=== PATIENT | female | born 1970 | race African-American/Black ===

== ENCOUNTER 2016-08-24 21:17 | Emergency (ER) | payer OTHER ==
[2016-08-24 21:30] VITALS: BP 118/73; PULSE 82; TEMP 98; BMI 26.4
--- NOTE | 2016-08-24 23:17 | PDOC ---
History of Present Illness - General History Source: Patient Exam Limitations: No Limitations - History of Present Illness Initial Comments: 08/24/16 23:30 The patient is a 46 year old female, with a significant past medical history of Narcotics abuse with multiple rehab admissions, anxiety and depression, who presents to the emergency department with right ankle pain. She reports that she took her sneakers off and thats when she began to have the pain. She states that she has some numbness in the area. She notes that she was able to walk to a taxi come to the ED. She reports that she recently smoked PCP prior to presenting to the ED. The patient denies chest pain, shortness of breath, headache and dizziness. Denies fever, chills, nausea, vomit, diarrhea and constipation. Denies dysuria, frequency, urgency and hematuria. Allergies: None Past surgical history: Scoliosis surgery, splenectomy Social history: Narcotic use (PCP). <Gerry Ramey - Last Filed: 08/24/16 23:30> <Everton Ashley - Last Filed: 08/25/16 01:41> - General Chief Complaint: Bone Injury Stated Complaint: R ANKLE INJURY Time Seen by Provider: 08/24/16 23:10 Past History <Gerry Ramey - Last Filed: 08/24/16 23:30> - Past Medical History Anemia: No Asthma: No Cancer: No Cardiac Disorders: No CVA: No COPD: No CHF: No Dementia: No Diabetes: No GI Disorders: No Disorders: No HTN: No Hypercholesterolemia: No Kidney Stones: No Liver Disease: No Psychiatric Problems: Yes (ANXIETY/DEPRESSION) Suicide Attempt (Hx): No Seizures: No Thyroid Disease: No Other medical history: scoliosis - Surgical History Abdominal Surgery: Yes (SPLEENECTOMY FOR THROMBOCYTOPENIA WHEN SHE WAS 3 YRS. OLD) Orthopedic Surgery: Yes (FOR SCOLIOSIS WHEN SHE WAS 18 YRS. OLD) - Reproductive History PID: No - Psycho/Social/Smoking Cessation Hx Anxiety: No Suicidal Ideation: No Smoking History: Never smoked Have you smoked in the past 12 months: No Number of Cigarettes Smoked Daily: 0 If you are a former smoker, when did you quit?: 20 YRS. AGO Information on smoking cessation initiated: Yes 'Breaking Loose' booklet given: 08/24/16 Hx Alcohol Use: No Drug/Substance Use Hx: Yes (PCP) Substance Use Type: Tranquilizers Hx Substance Use Treatment: Yes (One previous rehab admision at [facility] ) <Everton Ashley - Last Filed: 08/25/16 01:41> - Past Medical History Allergies/Adverse Reactions: Allergies Allergy/AdvReac Type Severity Reaction Status Date / Time No Known Allergies Allergy Verified 08/24/16 23:46 Home Medications: Ambulatory Orders NK [No Known Home Medication] 08/24/16 Review of Systems - Review of Systems Able to Perform ROS?: Yes Comments:: 08/24/16 23:30 GENERAL/CONSTITUTIONAL: No fever or chills. No weakness. HEAD, EYES, EARS, NOSE AND THROAT: No change in vision. No ear pain or discharge. No sore throat. CARDIOVASCULAR: No chest pain or shortness of breath RESPIRATORY: No cough, wheezing, or hemoptysis. GASTROINTESTINAL: No nausea, vomiting, diarrhea or constipation. GENITOURINARY: No dysuria, frequency, or change in urination. MUSCULOSKELETAL: No joint or muscle swelling or pain. No neck or back pain. EXTREMITIES: +Right ankle pain. SKIN: No rash NEUROLOGIC: No headache, vertigo, loss of consciousness, or change in strength/ sensation. ENDOCRINE: No increased thirst. No abnormal weight change HEMATOLOGIC/LYMPHATIC: No anemia, easy bleeding, or history of blood clots. ALLERGIC/IMMUNOLOGIC: No hives or skin allergy. <Gerry Ramey - Last Filed: 08/24/16 23:30> *Physical Exam - Vital Signs Last Vital Signs Temp Pulse Resp BP Pulse Ox 98 F 82 18 118/73 100 08/24/16 21:21 08/24/16 21:21 08/24/16 21:21 08/24/16 21:21 08/24/16 21:21 - Physical Exam Comments: 08/24/16 23:31 GENERAL: Awake, alert, and fully oriented, in no acute distress HEAD: No signs of trauma, normocephalic, atraumatic EXTREMITIES: +Right achilles is intact. No redness, swelling or warmth. Normal inspection, Normal range of motion, no edema. No clubbing or cyanosis. NEUROLOGICAL: Cranial nerves II through XII grossly intact. Normal speech, normal gait, no focal sensorimotor deficits SKIN: Warm, Dry, normal turgor, no rashes or lesions noted. <Gerry Ramey - Last Filed: 08/24/16 23:30> - Vital Signs Last Vital Signs Temp Pulse Resp BP Pulse Ox 98 F 82 18 118/73 100 08/24/16 21:21 08/24/16 21:21 08/24/16 21:21 08/24/16 21:21 08/24/16 21:21 <Everton Ashley - Last Filed: 08/25/16 01:41> *DC/Admit/Observation/Transfer - Attestations Scribe Attestion: 08/24/16 23:31 Documentation prepared by Gerry Ramey, acting as medical affairs specialist for Everton Ashley MD. <Gerry Ramey - Last Filed: 08/24/16 23:30> - Discharge Dispostion Admit: No <Everton Ashley - Last Filed: 08/25/16 01:41> Diagnosis at time of Disposition: Sprain of right ankle - Discharge Dispostion Disposition: HOME Condition at time of disposition: Stable - Referrals Referrals: STAFF,NOT ON [Primary Care Provider] -
[2016-08-25 00:06] LABS: URINE APPEARANCE SLCLOUDY; URINE BILIRUBIN NEGATIVE (NEGATIVE); URINE COLOR LTYELLOW; URINE GLUCOSE (UA) NEGATIVE (NEGATIVE); URINE KETONE NEGATIVE (NEGATIVE); URINE LEUK ESTERASE NEGATIVE (NEGATIVE); URINE NITRITE NEGATIVE (NEGATIVE); URINE PROTEIN NEGATIVE (NEGATIVE); URINE UROBILINOGEN NEGATIVE E.U./dl (0.2-1.0)
[2016-08-25 00:24] LABS: URINE BLOOD 1+ (NEGATIVE)
== END 2016-08-25 01:47 | disposition home or self-care (01) ==
LOC: JER 21:17
DX: S93.401A Sprain of unspecified ligament of right ankle, initial encounter (principal); X58.XXXA Exposure to other specified factors, initial encounter; Y93.89 Activity, other specified; Y92.89 Other specified places as the place of occurrence of the external cause; F19.10 Other psychoactive substance abuse, uncomplicated; F41.8 Other specified anxiety disorders; Z87.891 Personal history of nicotine dependence
CPT/HCPCS: 73610-TC-RT; 73630-TC-RT; 81003; 81015; 84703; 99283-25

== ENCOUNTER 2017-09-28 14:05 | Inpatient (IN) | payer OTHER ==
[2017-09-28 16:35] VITALS: BMI 25.7
--- NOTE | 2017-09-28 18:25 | HP ---
Admission ROS [facility] Chief Complaint: requesting inpatient rehab for pcp use Allergies/Adverse Reactions: Allergies Allergy/AdvReac Type Severity Reaction Status Date / Time No Known Allergies Allergy Verified 08/24/16 23:46 History of Present Illness: 47 yo f w h/o [facility], no other subustnae use reported, no seiuzres, DTs or SI. released by [facility], drug court mandated [place] to [facility] Exam Limitations: No Limitations - Ebola screening Have you traveled outside of the country in the last 21 days: No Have you had contact with anyone from an Ebola affected area: No Have you been sick,other than usual withdrawal symptoms: No Do you have a fever: No - Review of Systems Constitutional: No Symptoms Reported EENT: reports: No Symptoms Reported Respiratory: reports: No Symptoms reported Cardiac: reports: No Symptoms Reported GI: reports: No Symptoms Reported : reports: No Symptoms Reported Musculoskeletal: reports: No Symptoms Reported Integumentary: reports: No Symptoms Reported Neuro: reports: No Symptoms reported Endocrine: reports: No Symptoms Reported Hematology: reports: No Symptoms Reported Psychiatric: reports: Judgement Intact, Mood/Affect Appropiate, Orientated x3, Anxious, Depressed Other Systems: Reviewed and Negative Patient History - Patient Medical History Hx Anemia: No Hx Asthma: No Hx Chronic Obstructive Pulmonary Disease (COPD): No Hx Cancer: No Hx Cardiac Disorders: No Hx Congestive Heart Failure: No Hx Hypertension: No Hx Hypercholesterolemia: No Hx Pacemaker: No HX Cerebrovascular Accident: No Hx Seizures: No Hx Dementia: No Hx Diabetes: No Hx Gastrointestinal Disorders: No Hx Liver Disease: No Hx Genitourinary Disorders: No Hx Sexually Transmitted Disorders: No Hx Renal Disease (ESRD): No Hx Thyroid Disease: No Hx Human Immunodeficiency Virus (HIV): No Hx Hepatitis C: No Hx Depression: No Hx Suicide Attempt: No Hx Bipolar Disorder: No Hx Schizophrenia: No - Patient Surgical History Past Surgical History: Yes Hx Abdominal Surgery: Yes (SPLEENECTOMY FOR THROMBOCYTOPENIA WHEN SHE WAS 3 YRS. OLD) Hx Orthopedic Surgery: Yes (FOR SCOLIOSIS WHEN SHE WAS 18 YRS. OLD) Other Surgical History: umbilical hernia - PPD History Previous Implant?: Yes Date: 09/07/14 PPD to be Administered?: Yes - Reproductive History Patient is a Female of Child Bearing Age (11 -55 yrs old): No Last Menstrual Period: 09/02/14 Patient : No - Smoking Cessation Smoking history: Never smoked Have you smoked in the past 12 months: No Aproximately how many cigarettes per day: 0 If you are a former smoker, when did you quit?: 20 YRS. AGO Hx Chewing Tobacco Use: No Initiated information on smoking cessation: No 'Breaking Loose' booklet given: 09/28/17 - Substance & Tx. History Hx Alcohol Use: No Hx Substance Use: Yes (pcp) Hx Substance Use Treatment: Yes - Substances Abused PCP Route: Smoking Frequency: Daily Amount used: 1 blunt daily Age of first use: 33 Date of Last Use: 09/13/17 Family Disease History - Family Disease History Family Disease History: CA: Grandparent (breast cancer) Other Family History: uncle and aunt alcoholism Admission Physical Exam [facility] - Vital Signs Vital Signs: Vital Signs - 24 hr 09/28/17 16:30 Temperature 97.7 F Pulse Rate 94 H Respiratory 18 Rate Blood Pressure 119/68 - Physical General Appearance: Yes: Within Normal Limits, No Apparent Distress, Nourished, Appropriately Dressed, Anxious HEENTM: Yes: Within Normal Limits, EOMI, Hearing grossly Normal, Normal ENT Inspection, Normocephalic, Normal Voice, KISHA, Pharynx Normal, Tm's normal Respiratory: Yes: Within Normal Limits, Chest Non-Tender, Lungs Clear, Normal Breath Sounds, No Respiratory Distress, No Accessory Muscle Use Neck: Yes: Within Normal Limits, No masses,lesions,Nodules, Supple, Trachea in good position Breast: Yes: Breast Exam Deferred Cardiology: Yes: Within Normal Limits, Regular Rhythm, Regular Rate, S1, S2 Abdominal: Yes: Within Normal Limits, Normal Bowel Sounds, Non Tender, Flat, Soft Genitourinary: Yes: Within Normal Limits Back: Yes: Within Normal Limits, Normal Inspection Musculoskeletal: Yes: Within Normal Limits, full range of Motion, Gait Steady, Pelvis Stable Extremities: Yes: Within Normal Limits, Normal Capillary Refill, Normal Inspection, Normal Range of Motion, Non-Tender Neurological: Yes: yam curer II-XII NML intact, Fully Oriented, Alert, Motor Strength 5/5, Normal Response, Depressed Affect Integumentary: Yes: Within Normal Limits, Normal Color, Dry, Warm Lymphatic: Yes: Within Normal Limits - Diagnostic (1) PCP DEPENDENCE Current Visit: No Status: Chronic [facility] Breath Alcohol Content Breath Alcohol Content: 0 Urine Pregancy Test - Result Urine Test Results: Negative- NO Line Present Urine Drug Screen - Results Drug Screen Negative: No Urine Drug Screen Results: PCP-Phencyclidine
[2017-09-28] MEDS ORDERED: MAG HYDROX/AL HYDROX/SIMETH 30 ML UNIT-DOSE CUP PO PRN (18:26)
[2017-09-28] MEDS ORDERED: MENTHOL/PHENOL 1 EACH UD MM PRN (18:26)
[2017-09-28] MEDS ORDERED: P-EPHED 60MG/TRIPROLIDI 2.5MG TABLET PO PRN (18:26)
[2017-09-28] MEDS ORDERED: hydrOXYzine PAMOATE 50 MG CAPSULE (FP) PO PRN (18:26)
[2017-09-28] MEDS ORDERED: LOPERAMIDE HCL 2 MG CAPSULE PO PRN (18:26)
[2017-09-28] MEDS ORDERED: MAGNESIUM HYDROX 2400MG/30ML ORAL SUSPENSION 30 ML CUP PO PRN (18:26)
[2017-09-28] MEDS ORDERED: MAGNESIUM CITRATE 300 ML BOTTLE PO PRN (18:26)
[2017-09-28] MEDS ORDERED: guaiFENesin/D-METHORPHAN HB 10 ML UNIT-DOSE CUPS PO PRN (18:26)
[2017-09-28] MEDS ORDERED: TUBERCULIN PPD 5 TU/0.1ML VIAL ID ONE (21:14)
[2017-09-28] MEDS: THIAMINE HCL 100 MG TABLET (FP) PO SCH (21:19)
[2017-09-29 00:34] LABS: URINE APPEARANCE SLCLOUDY; URINE BILIRUBIN NEGATIVE (NEGATIVE); URINE BLOOD NEGATIVE (NEGATIVE); URINE COLOR YELLOW; URINE GLUCOSE (UA) NEGATIVE (NEGATIVE); URINE KETONE NEGATIVE (NEGATIVE); URINE LEUK ESTERASE NEGATIVE (NEGATIVE); URINE NITRITE NEGATIVE (NEGATIVE); URINE PROTEIN NEGATIVE (NEGATIVE); URINE UROBILINOGEN NEGATIVE mg/dL (0.2-1.0)
[2017-09-29] MEDS: PRENATAL VITAMINS W/ FOLIC ACID TABLET (FP) PO SCH (09:41)
[2017-09-29 10:10] LABS: HEMATOCRIT 37.5 % (32.4-45.2); HEMOGLOBIN 12.7 GM/dL (10.7-15.3); MCH 32.3 pg (25.7-33.7); MCHC 33.8 g/dl (32.0-36.0); MEAN CELL VOLUME 95.6 fl (80-96); MEAN PLT VOLUME 8.3 fl (7.5-11.1); PLATELET COUNT 295 K/MM3 (134-434); RBC 3.92 M/mm3 (3.60-5.2); RDW 13.2 % (11.6-15.6); WHITE BLOOD COUNT 5.9 K/mm3 (4.0-10.0)
[2017-09-29 10:22] LABS: ALBUMIN 3.6 g/dl (3.4-5.0); ALK PHOS 70 U/L (45-117); ANION GAP 5 (8-16); BILIRUBIN,TOTAL 0.2 mg/dL (0.2-1.0); BLOOD UREA NITROGEN 10 mg/dL (7-18); CALCIUM 8.5 mg/dL (8.5-10.1); CHLORIDE 105 mmol/L (98-107); CO2 30 mmol/L (21-32); CREATININE 0.5 mg/dL (0.55-1.02); GLUCOSE,RANDOM 81 mg/dL (74-106); POTASSIUM 3.9 mmol/L (3.5-5.1); SGOT/AST 12 U/L (15-37); SGPT/ALT 18 U/L (12-78); SODIUM 140 mmol/L (136-145); TOT PROT 6.8 g/dl (6.4-8.2)
[2017-09-29 11:47] LABS: SICKLE CELL SCREEN NEGATIVE (NEGATIVE)
--- NOTE | 2017-09-29 13:31 | HP ---
Psychiatrist Admission - Data Date of interview: 09/29/17 Admission source: Dario barahona Identifying data: This is the second admission to [address] [place] [address] for this 47 years single female mother of 15 yo boy(child resides with the patient's sister),patient resides ewith her mother,empolyed in [employer]. Medical History: H/O Tinea cruris,H/O vaginosis,H/O R ankle sprain. Psychiatric History: denies Physical/Sexual Abuse/Trauma History: denies Vital Signs: Vital Signs - 24 hr 09/28/17 09/29/17 09/29/17 16:30 03:30 06:57 Temperature 97.7 F 98.1 F Pulse Rate 94 H 73 Respiratory 18 16 18 Rate Blood Pressure 119/68 95/60 Allergies/Adverse Reactions: Allergies Allergy/AdvReac Type Severity Reaction Status Date / Time No Known Allergies Allergy Verified 09/28/17 18:46 Date of last physical exam: 09/28/17 Concur with the findings of this exam: Yes - Substance Abuse/Tx History Hx Alcohol Use: No Hx Substance Use: Yes (PCP since 33 years old ,4 bags daily) Hx Substance Use Treatment: Yes (completed this program in September 2014,relapsed in a few months after d/c) Mental Status Exam - Mental Status Exam Alert and Oriented to: Time, Place, Person Cognitive Function: Grossly Intact Patient Appearance: Unkempt Mood: Euthymic Affect: Mood Congruent Patient Behavior: Cooperative Speech Pattern: Clear Voice Loudness: Normal Thought Process: Goal Oriented Thought Disorder: Not Present Hallucinations: Denies Suicidal Ideation: Denies Homicidal Ideation: Denies Insight/Judgement: Fair Sleep: Fair Appetite: Good Muscle strength/Tone: Normal Gait/Station: Normal Psychiatric Findings - Problem List ([place] 1, 2,3) (1) Right ankle sprain Current Visit: Yes Status: Resolved (2) Tinea cruris Current Visit: Yes Status: Inactive (3) Vaginitis Current Visit: Yes Status: Inactive Qualifiers: Chronicity: acute Qualified Code(s): N76.0 - Acute vaginitis (4) PCP DEPENDENCE Current Visit: Yes Status: Chronic - Initial Treatment Plan Initial Treatment Plan: Will monitor progress.
--- NOTE | 2017-09-29 15:10 | EKG ---
Test Reason : Blood Pressure : / mmHG Vent. Rate : 073 BPM Atrial Rate : 073 BPM P-R Int : 156 ms QRS Dur : 074 ms QT Int : 396 ms P-R-T Axes : 017 062 042 degrees QTc Int : 436 ms NORMAL SINUS RHYTHM NORMAL ECG NO PREVIOUS ECGS AVAILABLE Confirmed by RACHAEL FRANZ MD ([id number]) on 09/29/2017 3:09:51 PM Referred By: Confirmed By:RACHAEL FRANZ MD
[2017-09-29] MEDS: THIAMINE HCL 100 MG TABLET (FP) PO SCH (21:46)
[2017-09-30] MEDS: PRENATAL VITAMINS W/ FOLIC ACID TABLET (FP) PO SCH (10:05)
[2017-09-30] MEDS: ACETAMINOPHEN 325 MG TABLET (FP) PO PRN (18:44)
[2017-09-30] MEDS ORDERED: PT OWN MED DRAWER 7, Y5N ONE ×2 (21:12→23:20)
[2017-09-30] MEDS: THIAMINE HCL 100 MG TABLET (FP) PO SCH (21:15)
[2017-10-01] MEDS: PRENATAL VITAMINS W/ FOLIC ACID TABLET (FP) PO SCH (09:43)
[2017-10-01] MEDS ORDERED: PT OWN MED DRAWER 7, Y5N ONE ×2 (21:20→23:22)
[2017-10-01] MEDS: THIAMINE HCL 100 MG TABLET (FP) PO SCH (21:26)
[2017-10-02] MEDS: PRENATAL VITAMINS W/ FOLIC ACID TABLET (FP) PO SCH (10:00)
[2017-10-02] MEDS ORDERED: PT OWN MED DRAWER 7, Y5N ONE ×2 (21:10→23:12)
[2017-10-02] MEDS: THIAMINE HCL 100 MG TABLET (FP) PO SCH (21:14)
[2017-10-03] MEDS: PRENATAL VITAMINS W/ FOLIC ACID TABLET (FP) PO SCH (09:55)
[2017-10-03] MEDS: THIAMINE HCL 100 MG TABLET (FP) PO SCH (21:06)
[2017-10-04] MEDS: PRENATAL VITAMINS W/ FOLIC ACID TABLET (FP) PO SCH (09:43)
[2017-10-04] MEDS: THIAMINE HCL 100 MG TABLET (FP) PO SCH (21:00)
[2017-10-05] MEDS: PRENATAL VITAMINS W/ FOLIC ACID TABLET (FP) PO SCH (09:39)
[2017-10-05] MEDS: THIAMINE HCL 100 MG TABLET (FP) PO SCH (21:08)
[2017-10-06] MEDS: PRENATAL VITAMINS W/ FOLIC ACID TABLET (FP) PO SCH (09:55)
[2017-10-06] MEDS ORDERED: PT OWN MED DRAWER 7, Y5N ONE (21:05)
[2017-10-06] MEDS: THIAMINE HCL 100 MG TABLET (FP) PO SCH (21:14)
[2017-10-07] MEDS ORDERED: PT OWN MED DRAWER 7, Y5N ONE (00:21)
[2017-10-07] MEDS: PRENATAL VITAMINS W/ FOLIC ACID TABLET (FP) PO SCH (09:42)
[2017-10-07] MEDS: THIAMINE HCL 100 MG TABLET (FP) PO SCH (21:05)
[2017-10-08] MEDS: PRENATAL VITAMINS W/ FOLIC ACID TABLET (FP) PO SCH (10:16)
[2017-10-08] MEDS: THIAMINE HCL 100 MG TABLET (FP) PO SCH (21:08)
[2017-10-09] MEDS: PRENATAL VITAMINS W/ FOLIC ACID TABLET (FP) PO SCH (09:51)
[2017-10-09] MEDS ORDERED: PT OWN MED DRAWER 7, Y5N ONE (21:07)
[2017-10-09] MEDS: THIAMINE HCL 100 MG TABLET (FP) PO SCH (21:12)
[2017-10-09] MEDS: IBUPROFEN 400 MG TABLET (FP) PO PRN (23:14)
[2017-10-10] MEDS: PRENATAL VITAMINS W/ FOLIC ACID TABLET (FP) PO SCH (09:58)
[2017-10-10] MEDS: IBUPROFEN 400 MG TABLET (FP) PO PRN (09:58)
[2017-10-10] MEDS ORDERED: COLLOIDAL OATMEAL 1 BAR EACH TP PRN (17:08)
--- NOTE | 2017-10-10 17:10 | PN ---
[facility] Progress Note Note: Patient c/o of itch and dryness over body after using current soap Vital Signs Temperature 97.8 F 10/10/17 07:00 Pulse Rate 68 10/10/17 07:00 Respiratory Rate 18 10/10/17 07:00 Blood Pressure 100/64 10/10/17 07:00 O2 Sat by Pulse Oximetry (%) Laboratory Last Values WBC 5.9 K/mm3 (4.0-10.0) 09/29/17 08:00 RBC 3.92 M/mm3 (3.60-5.2) 09/29/17 08:00 Hgb 12.7 GM/dL (10.7-15.3) 09/29/17 08:00 Hct 37.5 % (32.4-45.2) 09/29/17 08:00 MCV 95.6 fl (80-96) 09/29/17 08:00 MCH 32.3 pg (25.7-33.7) 09/29/17 08:00 MCHC 33.8 g/dl (32.0-36.0) 09/29/17 08:00 RDW 13.2 % (11.6-15.6) 09/29/17 08:00 Plt Count 295 K/MM3 (134-434) 09/29/17 08:00 MPV 8.3 fl (7.5-11.1) 09/29/17 08:00 Sickle Cell Screen Negative (NEGATIVE) 09/29/17 08:00 Sodium 140 mmol/L (136-145) 09/29/17 08:00 Potassium 3.9 mmol/L (3.5-5.1) 09/29/17 08:00 Chloride 105 mmol/L (98-107) 09/29/17 08:00 Carbon Dioxide 30 mmol/L (21-32) 09/29/17 08:00 Anion Gap 5 (8-16) L 09/29/17 08:00 BUN 10 mg/dL (7-18) 09/29/17 08:00 Creatinine 0.5 mg/dL (0.55-1.02) L 09/29/17 08:00 Creat Clearance w eGFR > 60 (>60) 09/29/17 08:00 Random Glucose 81 mg/dL (74-106) 09/29/17 08:00 Calcium 8.5 mg/dL (8.5-10.1) 09/29/17 08:00 Total Bilirubin 0.2 mg/dL (0.2-1.0) 09/29/17 08:00 AST 12 U/L (15-37) L 09/29/17 08:00 ALT 18 U/L (12-78) 09/29/17 08:00 Alkaline Phosphatase 70 U/L (45-117) 09/29/17 08:00 Total Protein 6.8 g/dl (6.4-8.2) 09/29/17 08:00 Albumin 3.6 g/dl (3.4-5.0) 09/29/17 08:00 Urine Color Yellow 09/29/17 00:05 Urine Appearance Slcloudy 09/29/17 00:05 Urine pH 6.0 (5.0-8.0) 09/29/17 00:05 Ur Specific [place] 1.019 (1.001-1.035) 09/29/17 00:05 Urine Protein Negative (NEGATIVE) 09/29/17 00:05 Urine Glucose (UA) Negative (NEGATIVE) 09/29/17 00:05 Urine Ketones Negative (NEGATIVE) 09/29/17 00:05 Urine Blood Negative (NEGATIVE) 09/29/17 00:05 Urine Nitrite Negative (NEGATIVE) 09/29/17 00:05 Urine Bilirubin Negative (NEGATIVE) 09/29/17 00:05 Urine Urobilinogen Negative mg/dL (0.2-1.0) 09/29/17 00:05 Ur Leukocyte Esterase Negative (NEGATIVE) 09/29/17 00:05 RPR Titer Nonreactive (NONREACTIVE) 09/29/17 08:00 Labs noted Patient AOX 3, in no apparent distress ambulating in the unit No skin break down, mild irritatin present dermatitis: aveno soap , increase fluids, continue to monitor
[2017-10-10] MEDS: THIAMINE HCL 100 MG TABLET (FP) PO SCH (21:04)
[2017-10-11] MEDS: PRENATAL VITAMINS W/ FOLIC ACID TABLET (FP) PO SCH (10:06)
[2017-10-11] MEDS: IBUPROFEN 400 MG TABLET (FP) PO PRN (15:02)
[2017-10-11] MEDS ORDERED: COLLOIDAL OATMEAL 1 BAR EACH TP PRN (15:53)
[2017-10-11] MEDS: THIAMINE HCL 100 MG TABLET (FP) PO SCH (21:06)
[2017-10-11] MEDS ORDERED: PT OWN MED DRAWER 7, Y5N ONE ×2 (23:37→23:42)
[2017-10-12] MEDS: PRENATAL VITAMINS W/ FOLIC ACID TABLET (FP) PO SCH (09:34)
[2017-10-12] MEDS: THIAMINE HCL 100 MG TABLET (FP) PO SCH (21:06)
[2017-10-13] MEDS: PRENATAL VITAMINS W/ FOLIC ACID TABLET (FP) PO SCH (10:15)
[2017-10-13] MEDS: THIAMINE HCL 100 MG TABLET (FP) PO SCH (21:04)
[2017-10-14] MEDS: PRENATAL VITAMINS W/ FOLIC ACID TABLET (FP) PO SCH (09:59)
[2017-10-14] MEDS: IBUPROFEN 400 MG TABLET (FP) PO PRN (20:06)
[2017-10-14] MEDS: THIAMINE HCL 100 MG TABLET (FP) PO SCH (21:18)
[2017-10-14] MEDS ORDERED: PT OWN MED DRAWER 7, Y5N ONE (23:26)
[2017-10-15] MEDS: PRENATAL VITAMINS W/ FOLIC ACID TABLET (FP) PO SCH (09:45)
[2017-10-15] MEDS ORDERED: PT OWN MED DRAWER 7, Y5N ONE ×2 (21:11→21:36)
[2017-10-15] MEDS: THIAMINE HCL 100 MG TABLET (FP) PO SCH (21:14)
[2017-10-16] MEDS: PRENATAL VITAMINS W/ FOLIC ACID TABLET (FP) PO SCH (09:49)
[2017-10-16] MEDS: THIAMINE HCL 100 MG TABLET (FP) PO SCH (21:07)
[2017-10-16] MEDS: IBUPROFEN 400 MG TABLET (FP) PO PRN (21:09)
[2017-10-16] MEDS ORDERED: PT OWN MED DRAWER 7, Y5N ONE (22:55)
[2017-10-17] MEDS: PRENATAL VITAMINS W/ FOLIC ACID TABLET (FP) PO SCH (10:10)
[2017-10-17] MEDS: THIAMINE HCL 100 MG TABLET (FP) PO SCH (21:04)
[2017-10-18] MEDS: PRENATAL VITAMINS W/ FOLIC ACID TABLET (FP) PO SCH (09:56)
--- NOTE | 2017-10-18 14:44 | PN ---
[facility] Progress Note Note: Notified by nurse pt has rash to right shoulder. Vital Signs Temperature 98.0 F 10/18/17 07:06 Pulse Rate 62 10/18/17 07:06 Respiratory Rate 18 10/18/17 07:06 Blood Pressure 101/65 10/18/17 07:06 O2 Sat by Pulse Oximetry (%) Subj: +itching to right shoulder. Denies any allergies to soap products and food. Obj: Skin: macular-red pin point rash to right shoulder. No ulcerations or lesions. A/P: Contact dermatitis Will order hydrocortisone ointment to site BID and continue to monitor clinically.
[2017-10-18] MEDS: THIAMINE HCL 100 MG TABLET (FP) PO SCH (21:10)
[2017-10-18] MEDS: HYDROCORTISONE 0.5% TOPICAL OINTMENT TUBE TP PRN (21:11)
[2017-10-19] MEDS: PRENATAL VITAMINS W/ FOLIC ACID TABLET (FP) PO SCH (09:45)
[2017-10-19] MEDS: THIAMINE HCL 100 MG TABLET (FP) PO SCH (21:05)
[2017-10-20] MEDS: HYDROCORTISONE 0.5% TOPICAL OINTMENT TUBE TP PRN (09:36)
[2017-10-20] MEDS: PRENATAL VITAMINS W/ FOLIC ACID TABLET (FP) PO SCH (09:36)
[2017-10-20] MEDS: THIAMINE HCL 100 MG TABLET (FP) PO SCH (21:12)
[2017-10-20] MEDS ORDERED: PT OWN MED DRAWER 7, Y5N ONE (23:14)
[2017-10-21] MEDS: PRENATAL VITAMINS W/ FOLIC ACID TABLET (FP) PO SCH (09:26)
[2017-10-21] MEDS: THIAMINE HCL 100 MG TABLET (FP) PO SCH (21:08)
[2017-10-22] MEDS: PRENATAL VITAMINS W/ FOLIC ACID TABLET (FP) PO SCH (09:24)
[2017-10-22] MEDS: ACETAMINOPHEN 325 MG TABLET (FP) PO PRN (10:08)
[2017-10-22] MEDS ORDERED: PT OWN MED DRAWER 7, Y5N ONE (10:12)
[2017-10-22] MEDS: THIAMINE HCL 100 MG TABLET (FP) PO SCH (21:08)
[2017-10-23] MEDS: PRENATAL VITAMINS W/ FOLIC ACID TABLET (FP) PO SCH (09:51)
[2017-10-23] MEDS: ACETAMINOPHEN 325 MG TABLET (FP) PO PRN (09:52)
[2017-10-23] MEDS: THIAMINE HCL 100 MG TABLET (FP) PO SCH (21:00)
[2017-10-24] MEDS: PRENATAL VITAMINS W/ FOLIC ACID TABLET (FP) PO SCH (09:54)
[2017-10-24] MEDS: THIAMINE HCL 100 MG TABLET (FP) PO SCH (21:12)
[2017-10-24] MEDS ORDERED: PT OWN MED DRAWER 7, Y5N ONE (22:58)
[2017-10-25 07:00] VITALS: BP 102/68; PULSE 78; TEMP 98.1
--- NOTE | 2017-10-25 08:39 | PN ---
Psychiatric Progress Note Vital Signs: Vital Signs Period Temp Pulse Resp BP Sys/Agustin Pulse Ox Last 24 Hr 98.1 F 78 16-18 102/68 Date of Session: 10/25/17 Chief Complaint:: Discharge HPI: Pt. admitted to for PCP dependence. ROS: Unremarkable Current Medications: Active Medications Generic Name Dose Route Start Last Admin Trade Name Freq PRN Reason Stop Dose Admin Acetaminophen 650 mg 09/28/17 18:26 10/23/17 09:52 Tylenol - PO 650 mg Q4H PRN Administration FEVER Al Hydroxide/Mg Hydroxide 30 ml 09/28/17 18:26 Mylanta Oral Suspension - PO Q6H PRN DYSPEPSIA Colloidal Oatmeal 1 applic 10/11/17 15:53 10/18/17 09:56 Aveeno Soap - TP 1 bar DAILY PRN Administration HYGEINE Eucalyptus/Menthol/Phenol/Sorbitol 1 each 09/28/17 18:26 Cepastat Lozenge - MM Q4H PRN SORE THROAT Guaifenesin 10 ml 09/28/17 18:26 Robitussin Dm - PO Q6H PRN COUGH Hydrocortisone 1 applic 10/18/17 14:41 10/20/17 09:36 Hytone 0.5% Ointment - TP 1 applic BID PRN Administration rash Hydroxyzine Pamoate 50 mg 09/28/17 18:26 Vistaril - PO Q4H PRN AGITATION Ibuprofen 400 mg 09/28/17 18:26 10/16/17 21:09 Motrin - PO 400 mg Q6H PRN Administration Pain level 4-6 Loperamide HCl 4 mg 09/28/17 18:26 Imodium - PO Q6H PRN DIARRHEA Magnesium Citrate 300 ml 09/28/17 18:26 Citroma - PO Q48H PRN CONSTIPATION Magnesium Hydroxide 30 ml 09/28/17 18:26 Milk Of Magnesia - PO DAILY PRN CONSTIPATION Multivit/Folic Acid/Iron 1 tab 09/29/17 10:00 10/24/17 09:54 Vitamins (Sjr) - PO 1 tab DAILY ELSI Administration Pseudoephedrine/Triprolidine 1 combo 09/28/17 18:26 Actifed - PO TID PRN NASAL CONGESTION Thiamine HCl 100 mg 09/28/17 22:00 10/24/17 21:12 Vitamin B1 - PO 100 mg HS ELSI Administration Medication(s) Change(s): No. Current Side Effect: No Lab tests ordered: No Lab tests reviewed: Yes Provider note:: Patient has completed the rehabilition program on 10/25/17. She has met the treatment goals and will continue to addresss her issues in outpatient at [facility]. She focues on insights gained in treatment including importance of changing attitude and ways she plans to utilize support to maintain recovery. Pt. is stable for discharge today. Total face to face time:: 35 Mental Status Exam - Mental Status Exam Alert and Oriented to: Time, Place, Person Cognitive Function: Good Patient Appearance: Well Groomed Mood: Hopeful, Happy Affect: Appropriate Patient Behavior: Appropriate, Cooperative Speech Pattern: Clear, Appropriate Voice Loudness: Normal Thought Process: Goal Oriented Thought Disorder: Not Present Hallucinations: Denies Suicidal Ideation: Denies Homicidal Ideation: Denies Insight/Judgement: Good Sleep: Well Appetite: Good Muscle strength/Tone: Normal Gait/Station: Normal Psychiatric Treatment Plan - Problem List (1) Acute dermatitis Current Visit: Yes (2) PCP DEPENDENCE Current Visit: Yes (3) Right ankle sprain Current Visit: Yes
[2017-10-25] MEDS: PRENATAL VITAMINS W/ FOLIC ACID TABLET (FP) PO SCH (10:00)
[2017-10-25] MEDS: HYDROCORTISONE 0.5% TOPICAL OINTMENT TUBE TP PRN (10:01)
== END 2017-10-25 10:55 | disposition home or self-care (01) | DRG 772 ==
LOC: YASAS 14:05 → Y3E 17:40
PROVIDERS: ADMIT Psychiatry & Neurology Psychiatry; ATTEND Psychiatry & Neurology Psychiatry
PROC: HZ42ZZZ Group Counseling for Substance Abuse Treatment, Cognitive-Behavioral (ICD-10-PCS; principal; 2017-09-28)
PROC: HZ42ZZZ Group Counseling for Substance Abuse Treatment, Cognitive-Behavioral (ICD-10-PCS; 2017-09-28)
DX: F16.20 Hallucinogen dependence, uncomplicated (principal); N76.0 Acute vaginitis; L30.9 Dermatitis, unspecified; B35.6 Tinea cruris; S93.401A Sprain of unspecified ligament of right ankle, initial encounter; X58.XXXA Exposure to other specified factors, initial encounter; Y93.89 Activity, other specified; Y92.89 Other specified places as the place of occurrence of the external cause; Y99.8 Other external cause status; Z90.81 Acquired absence of spleen
CPT/HCPCS: 36415; 80053; 81003; 85027; 85660; 86593; 93005; 93010

== ENCOUNTER 2018-07-30 12:08 | Emergency (ER) | payer OTHER ==
[2018-07-30 12:37] VITALS: BP 146/65; PULSE 66; TEMP 97.6; BMI 27.6
[2018-07-30 13:44] LABS: HCG,QUALITATIVE URINE Negative
[2018-07-30 13:54] LABS: URINE APPEARANCE SLCLOUDY; URINE BILIRUBIN NEGATIVE (<2.0 mg/dL); URINE COLOR YELLOW; URINE GLUCOSE (UA) NEGATIVE (NEGATIVE); URINE KETONE NEGATIVE (NEGATIVE); URINE LEUK ESTERASE 1+ (NEGATIVE); URINE NITRITE POSITIVE (NEGATIVE); URINE PROTEIN NEGATIVE (NEGATIVE); URINE UROBILINOGEN NEGATIVE mg/dL (0.2-1.0)
[2018-07-30 14:03] LABS: EPI CELLS RARE /HPF (FEW); URINE BACTERIA MODERATE /hpf (NONE SEEN); URINE HYALINE CAST 3 /lpf; URINE MUCUS MODERATE
--- NOTE | 2018-07-30 14:12 | PDOC ---
History of Present Illness - General Chief Complaint: Hematuria Stated Complaint: BLOOD IN URINE Time Seen by Provider: 07/30/18 13:26 - History of Present Illness Initial Comments: 07/30/18 14:11 47-year-old female without comorbidities with 2 days of dysuria without systemic symptoms Past History - Past Medical History Allergies/Adverse Reactions: Allergies Allergy/AdvReac Type Severity Reaction Status Date / Time No Known Allergies Allergy Verified 07/30/18 12:37 Home Medications: Ambulatory Orders Nitrofurantoin Monohyd/M-Cryst [Macrobid -] 100 mg PO BID #14 capsule 07/30/18 Anemia: No Asthma: No Cancer: No Cardiac Disorders: No CVA: No COPD: No CHF: No DVT: No Dementia: No Diabetes: No GI Disorders: No Disorders: No HTN: No Hypercholesterolemia: No Kidney Stones: No Liver Disease: No Psychiatric Problems: Yes (ANXIETY/DEPRESSION pcp use) Seizures: No Thyroid Disease: No - Surgical History Abdominal Surgery: Yes (SPLEENECTOMY FOR THROMBOCYTOPENIA WHEN SHE WAS 3 YRS. OLD) Orthopedic Surgery: Yes (FOR SCOLIOSIS WHEN SHE WAS 18 YRS. OLD) - Reproductive History PID: No - Suicide/Smoking/Psychosocial Hx Smoking History: Never smoked Have you smoked in the past 12 months: No Number of Cigarettes Smoked Daily: 0 If you are a former smoker, when did you quit?: 20 YRS. AGO Information on smoking cessation initiated: No 'Breaking Loose' booklet given: 09/28/17 Hx Alcohol Use: No Drug/Substance Use Hx: Yes (pcp) Substance Use Type: Tranquilizers Hx Substance Use Treatment: Yes (completed this program in September 2014,relapsed in a few months after d/c) Review of Systems - Review of Systems Constitutional: No: Fever : Yes: Dysuria *Physical Exam - Vital Signs Last Vital Signs Temp Pulse Resp BP Pulse Ox 97.6 F 66 16 146/65 100 07/30/18 12:34 07/30/18 12:34 07/30/18 12:34 07/30/18 12:34 07/30/18 12:34 - Physical Exam Comments: 07/30/18 14:11 HEAD: NC/AT EYES: Conjuntiva clear Ears: Canals and TM's normal NOSE: No d/c THROAT: Moist mucous membrances, oral pharanx clear, uvula midline NECK: Supple without adenopathy CARDIAC: S1 S2 LUNGS: CTA Full and Equal breath sounds ABDOMEN: Soft NT ND MS: Full ROM in all joints without edema NEUROLOGIC: No gross sensory or motor deficits, NVID SKIN: Normal color and temperature no lesions or rashes Moderate Sedation - Procedure Monitoring Vital Signs: Procedure Monitoring Vital Signs Temperature 97.6 F 07/30/18 12:34 Pulse Rate 66 07/30/18 12:34 Respiratory Rate 16 07/30/18 12:34 Blood Pressure 146/65 07/30/18 12:34 O2 Sat by Pulse Oximetry (%) 100 07/30/18 12:34 ED Treatment Course - ADDITIONAL ORDERS Additional order review: Laboratory Results 07/30/18 13:30 Urine Color Yellow Urine Appearance Slcloudy Urine pH 5.0 Ur Specific [place] 1.024 Urine Protein Negative Urine Glucose (UA) Negative Urine Ketones Negative Urine Blood 1+ H Urine Nitrite Positive Urine Bilirubin Negative Urine Urobilinogen Negative Ur Leukocyte Esterase 1+ H Urine WBC (Auto) 48 Urine RBC (Auto) 4 Ur Epithelial Cells Rare Urine Bacteria Moderate Hyaline Casts 3 Urine Mucus Moderate Urine HCG, Qual Negative *DC/Admit/Observation/Transfer Diagnosis at time of Disposition: UTI (urinary tract infection) - Discharge Dispostion Disposition: HOME Condition at time of disposition: Stable Decision to Admit order: No - Prescriptions Prescriptions: Nitrofurantoin Monohyd/M-Cryst [Macrobid -] 100 mg PO BID #14 capsule - Referrals Referrals: Anamaria Patton MD [Staff Physician] - - Patient Instructions Printed Discharge Instructions: Urinary Tract Infection Additional Instructions: Return to the emergency room should symptoms worsen or go unresolved. Please take the antibiotics as directed and follow-up with primary care physician in one to 2 days for further evaluation and treatment options. - Post Discharge Activity
== END 2018-07-30 14:24 | disposition home or self-care (01) ==
LOC: JERFT 12:08
DX: N39.0 Urinary tract infection, site not specified (principal); F41.8 Other specified anxiety disorders
CPT/HCPCS: 81003; 81015; 84703; 87086; 87186; 99281-25

== ENCOUNTER 2018-08-01 15:43 | Emergency (ER) | payer OTHER ==
[2018-08-01 15:57] VITALS: BP 91/61; PULSE 87; TEMP 98.9; BMI 25.0
[2018-08-01] MEDS ORDERED: SODIUM CHLORIDE 1,000 ML IV STA (15:58)
[2018-08-01] MEDS ORDERED: ONDANSETRON 4 MG/2 ML VIAL IVPUSH ONE (15:58)
--- NOTE | 2018-08-01 16:02 | PDOC ---
Rapid Medical Evaluation Chief Complaint: Nausea/Vomiting Medical Evaluation: Allergies Allergy/AdvReac Type Severity Reaction Status Date / Time No Known Allergies Allergy Verified 07/30/18 12:37 Vital Signs Temp Pulse Resp BP Pulse Ox 98.9 F 87 18 91/61 97 08/01/18 15:53 08/01/18 15:53 08/01/18 15:53 08/01/18 15:53 08/01/18 15:53 I have performed a brief in-person evaluation of this patient. The patient presents with a chief complaint of: NBNB emesis and watery diarrhea from today; recently seen in ED 2 days ago, dx with UTI and started on Macrobid ; mentions had some rice and beans last night and not sure if that precipitated it; also mentions noting some vaginal spotting today (her LNMP was last week) Pertinent physical exam findings: In NAD, abdomen soft I have ordered the following: Labs, IVF, Zofran The patient will proceed to the ED for further evaluation. 08/01/18 15:59 Discharge Disposition - Discharge Dispostion Condition at time of disposition: Stable - Referrals - Patient Instructions - Post Discharge Activity
[2018-08-01 16:15] LABS: BASO % 0.2 % (0-2.0); EOS % 0.2 % (0-4.5); HEMOGLOBIN 13.4 GM/dL (10.7-15.3); LYMPH % 9.5 % (8-40); MCH 31.9 pg (25.7-33.7); MCHC 34.4 g/dl (32.0-36.0); MEAN CELL VOLUME 92.8 fl (80-96); MEAN PLT VOLUME 7.8 fl (7.5-11.1); MONO % 4.2 % (3.8-10.2); NEUT % 85.9 % (42.8-82.8); PLATELET COUNT 347 K/MM3 (134-434); RDW 13.9 % (11.6-15.6); WHITE BLOOD COUNT 11.9 K/mm3 (4.0-10.0)
--- NOTE | 2018-08-01 16:32 | PDOC ---
History of Present Illness - General Chief Complaint: Nausea/Vomiting Stated Complaint: VOMITING Time Seen by Provider: 08/01/18 16:31 History Source: Patient Exam Limitations: No Limitations - History of Present Illness Initial Comments: 08/01/18 16:33 CHIEF COMPLAINT: Diarrhea HISTORY OF PRESENT ILLNESS: This is a 47-year-old female with a history of ITP/ splenectomy and drug abuse who presents for evaluation of diarrhea. She reports that she was seen here on 114 for dysuria and diagnosed with UTI. She was started on Macrobid. She then ate rice and beans from a restaurant yesterday and early this morning, and has had diarrhea constantly since then. She vomited once. She has generalized abdominal pain she has subjective fever and chills. She also reports that despite finishing her menstrual period about a week ago, she has had some dark vaginal bleeding which is foul-smelling. The patient is sexually active with multiple male partners, but reports that she has unprotected sex with only one of them. She notes that she has been under increased stress lately as she is homeless and staying with her sister, in hotels, or with friends. Smoking: None Drugs: Uses PCP (last night) Alcohol: None History of incarceration. REVIEW OF SYSTEMS: GENERAL/CONSTITUTIONAL: Subjective fevers/chills No weakness. No weight change. HEAD, EYES, EARS, NOSE AND THROAT: No change in vision. No ear pain or discharge. No sore throat. CARDIOVASCULAR: No chest pain or palpitations. RESPIRATORY: Dry cough. No wheezing or shortness of breath. GASTROINTESTINAL: Vomiting x 1, watery diarrhea x 1 day. GENITOURINARY: No dysuria or frequency. Dark vaginal bleeding, LMP completed 1 week ago. MUSCULOSKELETAL: No joint or muscle swelling or pain. No neck or back pain. SKIN: No rash or easy bruising. NEUROLOGIC: No headache, vertigo, loss of consciousness, or loss of sensation. PSYCHIATRIC: No depression or anxiety. ENDOCRINE: No increased thirst. No abnormal weight change. HEMATOLOGIC/LYMPHATIC: History of ITP. ALLERGIC/IMMUNOLOGIC: No hives or skin allergy. No latex allergy. PHYSICAL EXAM: GENERAL: The patient is awake, alert, and fully oriented, in no acute distress. HEAD: Normal with no signs of trauma. ENT: Pupils equal, round and reactive to light, extraocular movements intact, sclera anicteric, conjunctiva clear. Neck supple. LUNGS: Clear to auscultation bilaterally. Normal excursion. No respiratory distress or use of accessory muscles. CV: RRR, S1/S2, no MRG. Cap refill < 2 sec. ABDOMEN: Soft, non-distended, protuberant, no focal tenderness. EXTREMITIES: Normal range of motion, no edema. NEUROLOGICAL: Normal speech, normal gait. CN II-XII grossly intact. PSYCH: Normal mood, normal affect. SKIN: Warm, dry, normal turgor, no rashes or lesions noted. APRON OPERATOR: Normal external exam. Scant dark blood in vaginal vault. No abnormal vaginal discharge. No CMT or adnexal tenderness. Past History - Past Medical History Allergies/Adverse Reactions: Allergies Allergy/AdvReac Type Severity Reaction Status Date / Time No Known Allergies Allergy Verified 07/30/18 12:37 Home Medications: Ambulatory Orders Nitrofurantoin Monohyd/M-Cryst [Macrobid -] 100 mg PO BID #14 capsule 07/30/18 Ciprofloxacin [Cipro -] 500 mg PO Q12H #6 tablet 08/01/18 Anemia: No Asthma: No Cancer: No Cardiac Disorders: No CVA: No COPD: No CHF: No DVT: No Dementia: No Diabetes: No GI Disorders: No Disorders: No HTN: No Hypercholesterolemia: No Kidney Stones: No Liver Disease: No Psychiatric Problems: Yes (ANXIETY/DEPRESSION pcp use) Seizures: No Thyroid Disease: No Other medical history: cyst - Surgical History Abdominal Surgery: Yes (SPLEENECTOMY FOR THROMBOCYTOPENIA WHEN SHE WAS 3 YRS. OLD) Orthopedic Surgery: Yes (FOR SCOLIOSIS WHEN SHE WAS 18 YRS. OLD) - Reproductive History PID: No - Immunization History Immunization Up to Date: No - Suicide/Smoking/Psychosocial Hx Smoking History: Never smoked Have you smoked in the past 12 months: No Number of Cigarettes Smoked Daily: 0 If you are a former smoker, when did you quit?: 20 YRS. AGO Information on smoking cessation initiated: No 'Breaking Loose' booklet given: 09/28/17 Hx Alcohol Use: No Drug/Substance Use Hx: No Substance Use Type: Tranquilizers Hx Substance Use Treatment: Yes (completed this program in September 2014,relapsed in a few months after d/c) *Physical Exam - Vital Signs Last Vital Signs Temp Pulse Resp BP Pulse Ox 98.9 F 87 18 91/61 97 08/01/18 15:53 01/16/19 15:53 08/01/18 15:53 08/01/18 15:53 08/01/18 15:53 Moderate Sedation - Procedure Monitoring Vital Signs: Procedure Monitoring Vital Signs Temperature 98.9 F 08/01/18 15:53 Pulse Rate 87 08/01/18 15:53 Respiratory Rate 18 08/01/18 15:53 Blood Pressure 91/61 08/01/18 15:53 O2 Sat by Pulse Oximetry (%) 97 08/01/18 15:53 ED Treatment Course - LABORATORY CBC & Chemistry Diagram: 08/01/18 16:06 08/01/18 16:07 - ADDITIONAL ORDERS Additional order review: 08/01/18 16:06 RBC 4.20 MCV 92.8 MCHC 34.4 RDW 13.9 MPV 7.8 Neutrophils % 85.9 H D Lymphocytes % 9.5 D Monocytes % 4.2 Eosinophils % 0.2 D Basophils % 0.2 Medical Decision Making - Medical Decision Making 08/01/18 16:46 A/P: 47-year-old female with multiple symptoms including vomiting, abdominal pain, diarrhea and intermenstrual bleeding. Differential includes but is not limited to: Adverse reaction from Macrobid, gastroenteritis or other viral infection, pelvic infection/pelvic inflammatory disease. -Labs including CBC, CMP -Urinalysis, urine culture, urine , urine GC/CT -IV fluids and Zofran for symptomatic relief -Change Macrobid to Cipro (sensitive per 07/30 culture), will also cover for infectious diarrhea -Reassess 08/01/18 17:28 WBC 11.9 *DC/Admit/Observation/Transfer Diagnosis at time of Disposition: Diarrhea Qualifiers: Diarrhea type: presumed infectious Qualified Code(s): R19.7 - Diarrhea, unspecified - Discharge Dispostion Disposition: HOME Condition at time of disposition: Stable Decision to Admit order: No - Prescriptions Prescriptions: Ciprofloxacin [Cipro -] 500 mg PO Q12H #6 tablet - Referrals Referrals: Shailesh Patel MD [Primary Care Provider] - 3 days - Patient Instructions Printed Discharge Instructions: DI for Diarrhea and Traveler's Diarrhea -- Adult Additional Instructions: -Rest and stay well hydrated -Stopped taking Macrobid and start taking ciprofloxacin for UTI/diarrhea -Follow-up with your primary care doctor later this week -Return if you are unable to drink fluids, if you have worsening belly pain, if you have fever, or if you have any other concerning symptoms - Post Discharge Activity
[2018-08-01 16:49] LABS: ANION GAP 6 MMOL/L (8-16); BLOOD UREA NITROGEN 15 mg/dL (7-18); CALCIUM 8.7 mg/dL (8.5-10.1); CHLORIDE 110 mmol/L (98-107); CO2 24 mmol/L (21-32); CREATININE 0.7 mg/dL (0.55-1.3); GLUCOSE,RANDOM 105 mg/dL (74-106); POTASSIUM 4.1 mmol/L (3.5-5.1); SODIUM 140 mmol/L (136-145)
[2018-08-01] MEDS ORDERED: ONDANSETRON 4 MG/2 ML VIAL ONE (17:05)
[2018-08-01 17:21] LABS: URINE APPEARANCE CLEAR; URINE BILIRUBIN NEGATIVE (<2.0 mg/dL); URINE COLOR YELLOW; URINE GLUCOSE (UA) NEGATIVE (NEGATIVE); URINE KETONE NEGATIVE (NEGATIVE); URINE LEUK ESTERASE NEGATIVE (NEGATIVE); URINE NITRITE NEGATIVE (NEGATIVE); URINE PROTEIN NEGATIVE (NEGATIVE); URINE UROBILINOGEN NEGATIVE mg/dL (0.2-1.0)
[2018-08-01 17:28] LABS: EPI CELLS RARE /HPF (FEW); URINE MUCUS RARE
[2018-08-01] MEDS ORDERED: CIPROFLOXACIN 500 MG TABLET (RESTRICTED TO ID) PO ONE (18:04)
== END 2018-08-01 19:11 | disposition home or self-care (01) ==
LOC: JER 15:43
PROC: 3E033GC Introduction of Other Therapeutic Substance into Peripheral Vein, Percutaneous Approach (ICD-10-PCS; principal; 2018-08-01)
PROC: 3E0337Z Introduction of Electrolytic and Water Balance Substance into Peripheral Vein, Percutaneous Approach (ICD-10-PCS; 2018-08-01)
DX: R19.7 Diarrhea, unspecified (principal); Z59.0 Homelessness; D69.3 Immune thrombocytopenic purpura; F19.10 Other psychoactive substance abuse, uncomplicated; Z87.891 Personal history of nicotine dependence; F41.8 Other specified anxiety disorders
CPT/HCPCS: 36415; 80048; 81003; 81015; 84703; 85025; 87086; 87491; 87591; 96361; 96374; 99283-25; J7030

== ENCOUNTER 2018-12-03 15:04 | Inpatient (IN) | payer OTHER ==
[2018-12-03 19:10] VITALS: BMI 24.0
--- NOTE | 2018-12-03 23:39 | HP ---
CIWA Score - Admission Criteria [facility] Guidelines: Admission for Medically Managed Detox: Requires at least one of the followin. CIWA greater than 12 2. Seizures within the past 24 hours 3. Delirium tremens within the past 24 hours 4. Hallucinations within the past 24 hours 5. Acute intervention needed for co occurring medical disorder 6. Acute intervention needed for co occurring psychiatric disorder 7. Severe withdrawal that cannot be handled at a lower level of care (continued vomiting, continued diarrhea, abnormal vital signs) requiring intravenous medication and/or fluids 8. Admission ROS [facility] - HPI Chief Complaint: Seeking admission to Rehab Allergies/Adverse Reactions: Allergies Allergy/AdvReac Type Severity Reaction Status Date / Time No Known Allergies Allergy Verified 12/03/18 19:07 History of Present Illness: 48 years old female with PCP dependence is seeking admission to Rehab. Patient has been in previous Rehab. She denies past medical history and suicidal ideation at this time. Exam Limitations: No Limitations - Ebola screening Have you traveled outside of the country in the last 21 days: No Have you had contact with anyone from an Ebola affected area: No Have you been sick,other than usual withdrawal symptoms: No Do you have a fever: No - Review of Systems Constitutional: No Symptoms Reported EENT: reports: No Symptoms Reported Respiratory: reports: No Symptoms reported Cardiac: reports: No Symptoms Reported GI: reports: No Symptoms Reported : reports: No Symptoms Reported Musculoskeletal: reports: No Symptoms Reported Integumentary: reports: No Symptoms Reported Neuro: reports: No Symptoms reported Endocrine: reports: No Symptoms Reported Hematology: reports: No Symptoms Reported Psychiatric: reports: No Sypmtoms Reported Other Systems: Reviewed and Negative Patient History - Patient Medical History Hx Anemia: No Hx Asthma: No Hx Chronic Obstructive Pulmonary Disease (COPD): No Hx Cancer: No Hx Cardiac Disorders: No Hx Congestive Heart Failure: No Hx Hypertension: No Hx Hypercholesterolemia: No Hx Pacemaker: No HX Cerebrovascular Accident: No Hx Seizures: No Hx Dementia: No Hx Diabetes: No Hx Gastrointestinal Disorders: No Hx Liver Disease: No Hx Genitourinary Disorders: No Hx Sexually Transmitted Disorders: No Hx Renal Disease (ESRD): No Hx Thyroid Disease: No Hx Human Immunodeficiency Virus (HIV): No Hx Hepatitis C: No Hx Depression: No Hx Suicide Attempt: No Hx Bipolar Disorder: No Hx Schizophrenia: No - Patient Surgical History Past Surgical History: Yes Hx Abdominal Surgery: Yes (SPLEENECTOMY FOR THROMBOCYTOPENIA WHEN SHE WAS 3 YRS. OLD) Hx Orthopedic Surgery: Yes (FOR SCOLIOSIS WHEN SHE WAS 18 YRS. OLD) Other Surgical History: umbilical hernia - PPD History Previous Implant?: Yes Implanted On [facility] Admission?: Yes Date: 09/30/17 PPD to be Administered?: Yes - Reproductive History Patient is a Female of Child Bearing Age (11 -55 yrs old): Yes Last Menstrual Period: 11/27/18 Patient : No - Smoking Cessation Smoking history: Never smoked Have you smoked in the past 12 months: No Aproximately how many cigarettes per day: 0 If you are a former smoker, when did you quit?: 20 YRS. AGO Hx Chewing Tobacco Use: No Initiated information on smoking cessation: No - Substance & Tx. History Hx Alcohol Use: No Hx Substance Use: No Hx Substance Use Treatment: Yes ([facility]) - Substances abused PCP Substance route: Smoking Frequency: Daily Amount used: 1 BLUNT Age of first use: 34 Date of last use: 12/02/18 Family Disease History - Family Disease History Family Disease History: Diabetes: Mother, CA: Grandparent (breast cancer) Admission Physical Exam [facility] - Vital Signs Vital Signs: Vital Signs - 24 hr 12/03/18 19:08 Temperature 97.9 F Pulse Rate 88 Respiratory 18 Rate Blood Pressure 109/75 - Physical General Appearance: Yes: Nourished, Appropriately Dressed HEENTM: Yes: Within Normal Limits Respiratory: Yes: Lungs Clear, Normal Breath Sounds, No Respiratory Distress Neck: Yes: No masses,lesions,Nodules, Trachea in good position Breast: Yes: Breast Exam Deferred Cardiology: Yes: Regular Rhythm, Regular Rate Abdominal: Yes: Normal Bowel Sounds, Soft Genitourinary: Yes: Within Normal Limits Back: Yes: Normal Inspection Musculoskeletal: Yes: Within Normal Limits, Gait Steady Extremities: Yes: Within Normal Limits Neurological: Yes: Within Normal Limits, Fully Oriented, Alert, Normal Mood/ Affect Integumentary: Yes: Warm Lymphatic: Yes: Within Normal Limits - Diagnostic (1) PCP DEPENDENCE Current Visit: No Status: Chronic Cleared for Admission [facility] - Detox or Rehab [facility] Level of Care: Observation Bed Claeared for Rehab Admission: Yes Breathalyzer - Breathalyzer Breathalyzer: 0 Urine Drug Screen - Test Device Lot number: [id number] Expiration date: 10/14/19 - Control Is test valid?: Yes - Results Drug screen NEGATIVE: Yes Inpatient Rehab Admission - Rehab Decision to Admit Inpatient rehab admission?: Yes - Initial Determination Are CD services needed?: No Free of communicable disease: Yes Not in need of hospitalization: Yes - Rehab Admission Criteria Previous failed treatment: Yes Poor recovery environment: Yes Comorbidities: Yes Lacks judgement: No Patient is meeting Inpatient Rehab admission criteria:: Yes
[2018-12-03] MEDS ORDERED: ACETAMINOPHEN 325 MG TABLET (FP) PO PRN (23:48)
[2018-12-03] MEDS ORDERED: MAG HYDROX/AL HYDROX/SIMETH 30 ML UNIT-DOSE CUP PO PRN (23:48)
[2018-12-03] MEDS ORDERED: LOPERAMIDE HCL 2 MG CAPSULE PO PRN (23:48)
[2018-12-03] MEDS ORDERED: MAGNESIUM HYDROX 2400MG/30ML ORAL SUSPENSION 30 ML CUP PO PRN (23:48)
[2018-12-03] MEDS ORDERED: P-EPHED 60MG/TRIPROLIDI 2.5MG TABLET PO PRN (23:48)
[2018-12-03] MEDS ORDERED: MENTHOL/PHENOL 1 EACH UD MM PRN (23:48)
[2018-12-03] MEDS ORDERED: guaiFENesin 200 MG/10 ML 10 ML UNIT-DOSE CUPS PO PRN (23:48)
[2018-12-03] MEDS ORDERED: MAGNESIUM CITRATE 300 ML BOTTLE PO PRN (23:48)
[2018-12-04] MEDS ORDERED: TUBERCULIN PPD 5 TU/0.1ML VIAL ID ONE (00:24)
[2018-12-04] MEDS: PRENATAL VITAMINS W/ FOLIC ACID TABLET (FP) PO SCH (09:24)
[2018-12-04] MEDS: PATIENT'S OWN MEDICATION (NON-FORMULARY) (Azithromycin [Azithromycin] 250 MG) PO SCH ×2 (11:54→12:10)
[2018-12-04 12:35] LABS: HEMATOCRIT 36.3 % (32.4-45.2); HEMOGLOBIN 11.9 GM/dL (10.7-15.3); MCH 31.2 pg (25.7-33.7); MCHC 32.8 g/dl (32.0-36.0); MEAN CELL VOLUME 95.2 fl (80-96); MEAN PLT VOLUME 7.9 fl (7.5-11.1); PLATELET COUNT 303 K/MM3 (134-434); RBC 3.81 M/mm3 (3.60-5.2); RDW 14.8 % (11.6-15.6); WHITE BLOOD COUNT 6.1 K/mm3 (4.0-10.0)
[2018-12-04 12:40] LABS: ALBUMIN 3.3 g/dl (3.4-5.0); BILIRUBIN,TOTAL 0.3 mg/dL (0.2-1); CALCIUM 8.7 mg/dL (8.5-10.1); CREATININE 0.6 mg/dL (0.55-1.3); POTASSIUM 4.2 mmol/L (3.5-5.1); TOT PROT 6.8 g/dl (6.4-8.2)
[2018-12-04 13:47] LABS: EPI CELLS 1.5 /HPF (0-5/HPF); HYALINE CASTS 10 /lpf (0-8); URINE APPEARANCE CLEAR; URINE BACTERIA >9000 /hpf (NEGATIVE); URINE BILIRUBIN NEGATIVE (NEGATIVE); URINE COLOR YELLOW; URINE GLUCOSE (UA) NEGATIVE (NEGATIVE); URINE KETONE NEGATIVE (NEGATIVE); URINE LEUK ESTERASE NEGATIVE (NEGATIVE); URINE NITRITE POSITIVE (NEGATIVE); URINE PROTEIN NEGATIVE (NEGATIVE); URINE RBC 1 /hpf (0-4); URINE UROBILINOGEN 0.2 mg/dL (0.2-1.0); URINE WBC 1 /hpf (0-5)
[2018-12-04] MEDS: THIAMINE HCL 100 MG TABLET (FP) PO SCH (22:07)
[2018-12-05] MEDS: PATIENT'S OWN MEDICATION (NON-FORMULARY) (Azithromycin [Azithromycin] 250 MG) PO SCH (09:52)
[2018-12-05] MEDS: PRENATAL VITAMINS W/ FOLIC ACID TABLET (FP) PO SCH (09:52)
[2018-12-05] MEDS: THIAMINE HCL 100 MG TABLET (FP) PO SCH (21:54)
[2018-12-06] MEDS: PRENATAL VITAMINS W/ FOLIC ACID TABLET (FP) PO SCH (09:54)
[2018-12-06] MEDS: PATIENT'S OWN MEDICATION (NON-FORMULARY) (Azithromycin [Azithromycin] 250 MG) PO SCH (09:55)
[2018-12-06] MEDS: MELATONIN 5 MG TABLETS PO PRN (21:47)
[2018-12-06] MEDS: THIAMINE HCL 100 MG TABLET (FP) PO SCH (21:47)
[2018-12-07] MEDS: PATIENT'S OWN MEDICATION (NON-FORMULARY) (Azithromycin [Azithromycin] 250 MG) PO SCH (10:07)
[2018-12-07] MEDS: PRENATAL VITAMINS W/ FOLIC ACID TABLET (FP) PO SCH (10:08)
[2018-12-07] MEDS: THIAMINE HCL 100 MG TABLET (FP) PO SCH (21:26)
[2018-12-07] MEDS: MELATONIN 5 MG TABLETS PO PRN (21:26)
[2018-12-08] MEDS: PRENATAL VITAMINS W/ FOLIC ACID TABLET (FP) PO SCH (09:55)
[2018-12-08] MEDS ORDERED: PATIENT'S OWN MEDICATION (NON-FORMULARY) (Azithromycin [Azithromycin] 250 MG) PO ONE (10:30)
[2018-12-08] MEDS: THIAMINE HCL 100 MG TABLET (FP) PO SCH (21:29)
[2018-12-09] MEDS: PRENATAL VITAMINS W/ FOLIC ACID TABLET (FP) PO SCH (10:03)
[2018-12-09] MEDS: IBUPROFEN 400 MG TABLET (FP) PO PRN (10:04)
[2018-12-09] MEDS: THIAMINE HCL 100 MG TABLET (FP) PO SCH (21:21)
[2018-12-10] MEDS: PRENATAL VITAMINS W/ FOLIC ACID TABLET (FP) PO SCH (10:08)
--- NOTE | 2018-12-10 14:07 | PN ---
[facility] Progress Note Note: c/o dry skin and requesting aveeno soap. Vital Signs 12/10/18 06:28 Temperature 97.8 F Pulse Rate 74 Respiratory 18 Rate Blood Pressure 106/67 Laboratory Tests 12/03/18 12/03/18 12/04/18 09:50 19:42 08:30 WBC 6.1 RBC 3.81 Hgb 11.9 Hct 36.3 MCV 95.2 MCH 31.2 MCHC 32.8 RDW 14.8 Plt Count 303 MPV 7.9 Sodium Potassium Chloride Carbon Dioxide Anion Gap BUN Creatinine Est GFR (CKD-EPI)AfAm Est GFR (CKD-EPI)NonAf Random Glucose Calcium Total Bilirubin AST ALT Alkaline Phosphatase Total Protein Albumin Urine Color Urine Appearance Urine pH Ur Specific [place] Urine Protein Urine Glucose (UA) Urine Ketones Urine Blood Urine Nitrite Urine Bilirubin Urine Urobilinogen Ur Leukocyte Esterase Urine WBC (Auto) Urine RBC (Auto) Urine Casts (Auto) U Epithel Cells (Auto) Urine Bacteria (Auto) POC Urine HCG, Qual Negative Negative RPR Titer HIV 1&2 Antibody Screen HIV P24 Antigen 12/04/18 12/04/18 12/04/18 08:30 08:30 08:30 WBC RBC Hgb Hct MCV MCH MCHC RDW Plt Count MPV Sodium 139 Potassium 4.2 Chloride 106 Carbon Dioxide 28 Anion Gap 5 L BUN 8 Creatinine 0.6 Est GFR (CKD-EPI)AfAm 124.92 Est GFR (CKD-EPI)NonAf 107.78 Random Glucose 116 H Calcium 8.7 Total Bilirubin 0.3 AST 12 L ALT 20 Alkaline Phosphatase 62 Total Protein 6.8 Albumin 3.3 L Urine Color Urine Appearance Urine pH Ur Specific [place] Urine Protein Urine Glucose (UA) Urine Ketones Urine Blood Urine Nitrite Urine Bilirubin Urine Urobilinogen Ur Leukocyte Esterase Urine WBC (Auto) Urine RBC (Auto) Urine Casts (Auto) U Epithel Cells (Auto) Urine Bacteria (Auto) POC Urine HCG, Qual RPR Titer Nonreactive HIV 1&2 Antibody Screen Negative HIV P24 Antigen Negative 12/04/18 10:30 WBC RBC Hgb Hct MCV MCH MCHC RDW Plt Count MPV Sodium Potassium Chloride Carbon Dioxide Anion Gap BUN Creatinine Est GFR (CKD-EPI)AfAm Est GFR (CKD-EPI)NonAf Random Glucose Calcium Total Bilirubin AST ALT Alkaline Phosphatase Total Protein Albumin Urine Color Yellow Urine Appearance Clear Urine pH 7.0 D Ur Specific [place] 1.016 Urine Protein Negative Urine Glucose (UA) Negative Urine Ketones Negative Urine Blood Negative Urine Nitrite Positive H Urine Bilirubin Negative Urine Urobilinogen 0.2 Ur Leukocyte Esterase Negative Urine WBC (Auto) 1 Urine RBC (Auto) 1 Urine Casts (Auto) 10 U Epithel Cells (Auto) 1.5 Urine Bacteria (Auto) >9000 POC Urine HCG, Qual RPR Titer HIV 1&2 Antibody Screen HIV P24 Antigen plan:Aveeno soap as directed. Repeat UA;UC
[2018-12-10] MEDS: THIAMINE HCL 100 MG TABLET (FP) PO SCH (21:15)
[2018-12-10] MEDS: IBUPROFEN 400 MG TABLET (FP) PO PRN (21:15)
[2018-12-11] MEDS: PRENATAL VITAMINS W/ FOLIC ACID TABLET (FP) PO SCH (10:08)
[2018-12-11] MEDS: THIAMINE HCL 100 MG TABLET (FP) PO SCH (21:22)
[2018-12-11] MEDS: COLLOIDAL OATMEAL 1 BAR EACH TP PRN (21:22)
[2018-12-12] MEDS: PRENATAL VITAMINS W/ FOLIC ACID TABLET (FP) PO SCH (10:07)
[2018-12-12] MEDS: THIAMINE HCL 100 MG TABLET (FP) PO SCH (21:15)
[2018-12-13] MEDS: PRENATAL VITAMINS W/ FOLIC ACID TABLET (FP) PO SCH (10:13)
[2018-12-13] MEDS ORDERED: PT OWN MED DRAWER 7, Y5N ONE (10:42)
[2018-12-13] MEDS: THIAMINE HCL 100 MG TABLET (FP) PO SCH (21:43)
[2018-12-14] MEDS: IBUPROFEN 400 MG TABLET (FP) PO PRN (06:53)
[2018-12-14] MEDS: PRENATAL VITAMINS W/ FOLIC ACID TABLET (FP) PO SCH (10:25)
[2018-12-14] MEDS: THIAMINE HCL 100 MG TABLET (FP) PO SCH (21:30)
[2018-12-15] MEDS: PRENATAL VITAMINS W/ FOLIC ACID TABLET (FP) PO SCH (10:22)
[2018-12-15 10:52] LABS: EPI CELLS 0.2 /HPF (0-5/HPF); HYALINE CASTS 1 /lpf (0-8); URINE APPEARANCE CLEAR; URINE BACTERIA 2772.9 /hpf (NEGATIVE); URINE BILIRUBIN NEGATIVE (NEGATIVE); URINE COLOR YELLOW; URINE GLUCOSE (UA) NEGATIVE (NEGATIVE); URINE KETONE NEGATIVE (NEGATIVE); URINE LEUK ESTERASE NEGATIVE (NEGATIVE); URINE NITRITE POSITIVE (NEGATIVE); URINE PROTEIN NEGATIVE (NEGATIVE); URINE RBC 0 /hpf (0-4); URINE UROBILINOGEN 0.2 mg/dL (0.2-1.0); URINE WBC 1 /hpf (0-5)
[2018-12-15] MEDS: THIAMINE HCL 100 MG TABLET (FP) PO SCH (21:34)
[2018-12-15] MEDS: IBUPROFEN 400 MG TABLET (FP) PO PRN (21:35)
[2018-12-16] MEDS: PRENATAL VITAMINS W/ FOLIC ACID TABLET (FP) PO SCH (10:14)
[2018-12-16] MEDS: THIAMINE HCL 100 MG TABLET (FP) PO SCH (21:01)
[2018-12-17] MEDS: PRENATAL VITAMINS W/ FOLIC ACID TABLET (FP) PO SCH (09:36)
--- NOTE | 2018-12-17 14:06 | PN ---
[facility] Progress Note Note: LAB RESULT REVIEW: Laboratory Tests 12/03/18 12/03/18 12/04/18 09:50 19:42 08:30 WBC 6.1 RBC 3.81 Hgb 11.9 Hct 36.3 MCV 95.2 MCH 31.2 MCHC 32.8 RDW 14.8 Plt Count 303 MPV 7.9 Sodium Potassium Chloride Carbon Dioxide Anion Gap BUN Creatinine Est GFR (CKD-EPI)AfAm Est GFR (CKD-EPI)NonAf Random Glucose Calcium Total Bilirubin AST ALT Alkaline Phosphatase Total Protein Albumin Urine Color Urine Appearance Urine pH Ur Specific [place] Urine Protein Urine Glucose (UA) Urine Ketones Urine Blood Urine Nitrite Urine Bilirubin Urine Urobilinogen Ur Leukocyte Esterase Urine WBC (Auto) Urine RBC (Auto) Urine Casts (Auto) U Epithel Cells (Auto) Urine Bacteria (Auto) POC Urine HCG, Qual Negative Negative RPR Titer HIV 1&2 Antibody Screen HIV P24 Antigen 12/04/18 12/04/18 12/04/18 08:30 08:30 08:30 WBC RBC Hgb Hct MCV MCH MCHC RDW Plt Count MPV Sodium 139 Potassium 4.2 Chloride 106 Carbon Dioxide 28 Anion Gap 5 L BUN 8 Creatinine 0.6 Est GFR (CKD-EPI)AfAm 124.92 Est GFR (CKD-EPI)NonAf 107.78 Random Glucose 116 H Calcium 8.7 Total Bilirubin 0.3 AST 12 L ALT 20 Alkaline Phosphatase 62 Total Protein 6.8 Albumin 3.3 L Urine Color Urine Appearance Urine pH Ur Specific [place] Urine Protein Urine Glucose (UA) Urine Ketones Urine Blood Urine Nitrite Urine Bilirubin Urine Urobilinogen Ur Leukocyte Esterase Urine WBC (Auto) Urine RBC (Auto) Urine Casts (Auto) U Epithel Cells (Auto) Urine Bacteria (Auto) POC Urine HCG, Qual RPR Titer Nonreactive HIV 1&2 Antibody Screen Negative HIV P24 Antigen Negative 12/04/18 12/15/18 10:30 Unknown WBC RBC Hgb Hct MCV MCH MCHC RDW Plt Count MPV Sodium Potassium Chloride Carbon Dioxide Anion Gap BUN Creatinine Est GFR (CKD-EPI)AfAm Est GFR (CKD-EPI)NonAf Random Glucose Calcium Total Bilirubin AST ALT Alkaline Phosphatase Total Protein Albumin Urine Color Yellow Yellow Urine Appearance Clear Clear Urine pH 7.0 D 5.0 D Ur Specific [place] 1.016 1.014 Urine Protein Negative Negative Urine Glucose (UA) Negative Negative Urine Ketones Negative Negative Urine Blood Negative Negative Urine Nitrite Positive H Positive H Urine Bilirubin Negative Negative Urine Urobilinogen 0.2 0.2 Ur Leukocyte Esterase Negative Negative Urine WBC (Auto) 1 1 Urine RBC (Auto) 1 0 Urine Casts (Auto) 10 1 U Epithel Cells (Auto) 1.5 0.2 Urine Bacteria (Auto) >9000 2772.9 POC Urine HCG, Qual RPR Titer HIV 1&2 Antibody Screen HIV P24 Antigen Microbiology 12/15/18 Unknown Urine - Urine Clean Catch Urine Culture - Final Escherichia Coli PLAN:BACTRIM DS 1 TAB PO BID X 7DAYS
[2018-12-17] MEDS: THIAMINE HCL 100 MG TABLET (FP) PO SCH (21:27)
[2018-12-17] MEDS: SULFAMETHOXAZOLE/TRIMETHOPRIM 800MG/160MG D.S. TABLET PO SCH (21:28)
[2018-12-18] MEDS: PRENATAL VITAMINS W/ FOLIC ACID TABLET (FP) PO SCH (09:42)
[2018-12-18] MEDS: SULFAMETHOXAZOLE/TRIMETHOPRIM 800MG/160MG D.S. TABLET PO SCH ×2 (09:42→21:28)
[2018-12-18] MEDS: IBUPROFEN 400 MG TABLET (FP) PO PRN (14:03)
[2018-12-18] MEDS: THIAMINE HCL 100 MG TABLET (FP) PO SCH (21:28)
[2018-12-19] MEDS: PRENATAL VITAMINS W/ FOLIC ACID TABLET (FP) PO SCH (09:40)
[2018-12-19] MEDS: SULFAMETHOXAZOLE/TRIMETHOPRIM 800MG/160MG D.S. TABLET PO SCH ×2 (09:40→21:35)
[2018-12-19] MEDS: BACITRACIN 0.9 GM PACKET TP PRN ×2 (14:46→21:35)
[2018-12-19] MEDS: IBUPROFEN 400 MG TABLET (FP) PO PRN (15:50)
[2018-12-19] MEDS: THIAMINE HCL 100 MG TABLET (FP) PO SCH (21:35)
[2018-12-20] MEDS: PRENATAL VITAMINS W/ FOLIC ACID TABLET (FP) PO SCH (09:53)
[2018-12-20] MEDS: SULFAMETHOXAZOLE/TRIMETHOPRIM 800MG/160MG D.S. TABLET PO SCH ×2 (09:53→21:42)
[2018-12-20] MEDS: BACITRACIN 0.9 GM PACKET TP PRN (09:54)
[2018-12-20] MEDS: COLLOIDAL OATMEAL 1 BAR EACH TP PRN (09:55)
[2018-12-20] MEDS: THIAMINE HCL 100 MG TABLET (FP) PO SCH (21:42)
[2018-12-21] MEDS: SULFAMETHOXAZOLE/TRIMETHOPRIM 800MG/160MG D.S. TABLET PO SCH ×2 (09:55→21:31)
[2018-12-21] MEDS: PRENATAL VITAMINS W/ FOLIC ACID TABLET (FP) PO SCH (09:55)
[2018-12-21] MEDS: BACITRACIN 0.9 GM PACKET TP PRN (09:56)
--- NOTE | 2018-12-21 12:14 | PN ---
[facility] Progress Note Note: Laboratory Tests 12/03/18 12/03/18 12/04/18 09:50 19:42 08:30 WBC 6.1 RBC 3.81 Hgb 11.9 Hct 36.3 MCV 95.2 MCH 31.2 MCHC 32.8 RDW 14.8 Plt Count 303 MPV 7.9 Sodium Potassium Chloride Carbon Dioxide Anion Gap BUN Creatinine Est GFR (CKD-EPI)AfAm Est GFR (CKD-EPI)NonAf Random Glucose Calcium Total Bilirubin AST ALT Alkaline Phosphatase Total Protein Albumin Urine Color Urine Appearance Urine pH Ur Specific [place] Urine Protein Urine Glucose (UA) Urine Ketones Urine Blood Urine Nitrite Urine Bilirubin Urine Urobilinogen Ur Leukocyte Esterase Urine WBC (Auto) Urine RBC (Auto) Urine Casts (Auto) U Epithel Cells (Auto) Urine Bacteria (Auto) POC Urine HCG, Qual Negative Negative RPR Titer HIV 1&2 Antibody Screen HIV P24 Antigen 12/04/18 12/04/18 12/04/18 08:30 08:30 08:30 WBC RBC Hgb Hct MCV MCH MCHC RDW Plt Count MPV Sodium 139 Potassium 4.2 Chloride 106 Carbon Dioxide 28 Anion Gap 5 L BUN 8 Creatinine 0.6 Est GFR (CKD-EPI)AfAm 124.92 Est GFR (CKD-EPI)NonAf 107.78 Random Glucose 116 H Calcium 8.7 Total Bilirubin 0.3 AST 12 L ALT 20 Alkaline Phosphatase 62 Total Protein 6.8 Albumin 3.3 L Urine Color Urine Appearance Urine pH Ur Specific [place] Urine Protein Urine Glucose (UA) Urine Ketones Urine Blood Urine Nitrite Urine Bilirubin Urine Urobilinogen Ur Leukocyte Esterase Urine WBC (Auto) Urine RBC (Auto) Urine Casts (Auto) U Epithel Cells (Auto) Urine Bacteria (Auto) POC Urine HCG, Qual RPR Titer Nonreactive HIV 1&2 Antibody Screen Negative HIV P24 Antigen Negative 12/04/18 12/15/18 10:30 Unknown WBC RBC Hgb Hct MCV MCH MCHC RDW Plt Count MPV Sodium Potassium Chloride Carbon Dioxide Anion Gap BUN Creatinine Est GFR (CKD-EPI)AfAm Est GFR (CKD-EPI)NonAf Random Glucose Calcium Total Bilirubin AST ALT Alkaline Phosphatase Total Protein Albumin Urine Color Yellow Yellow Urine Appearance Clear Clear Urine pH 7.0 D 5.0 D Ur Specific [place] 1.016 1.014 Urine Protein Negative Negative Urine Glucose (UA) Negative Negative Urine Ketones Negative Negative Urine Blood Negative Negative Urine Nitrite Positive H Positive H Urine Bilirubin Negative Negative Urine Urobilinogen 0.2 0.2 Ur Leukocyte Esterase Negative Negative Urine WBC (Auto) 1 1 Urine RBC (Auto) 1 0 Urine Casts (Auto) 10 1 U Epithel Cells (Auto) 1.5 0.2 Urine Bacteria (Auto) >9000 2772.9 POC Urine HCG, Qual RPR Titer HIV 1&2 Antibody Screen HIV P24 Antigen REPEAT UA CONTINUE BACTRIM DS THERAPY.
[2018-12-21] MEDS: THIAMINE HCL 100 MG TABLET (FP) PO SCH (21:31)
[2018-12-21] MEDS: IBUPROFEN 400 MG TABLET (FP) PO PRN (23:29)
[2018-12-22] MEDS: PRENATAL VITAMINS W/ FOLIC ACID TABLET (FP) PO SCH (09:47)
[2018-12-22] MEDS: SULFAMETHOXAZOLE/TRIMETHOPRIM 800MG/160MG D.S. TABLET PO SCH ×2 (09:47→21:12)
[2018-12-22] MEDS: BACITRACIN 0.9 GM PACKET TP PRN (09:48)
[2018-12-22 11:59] LABS: EPI CELLS 0.8 /HPF (0-5/HPF); HYALINE CASTS 0 /lpf (0-8); PH,URINE 7.5 (5.0-8.0); URINE APPEARANCE CLEAR; URINE BACTERIA 2.5 /hpf (NEGATIVE); URINE BILIRUBIN NEGATIVE (NEGATIVE); URINE COLOR YELLOW; URINE GLUCOSE (UA) NEGATIVE (NEGATIVE); URINE KETONE NEGATIVE (NEGATIVE); URINE LEUK ESTERASE TRACE (NEGATIVE); URINE NITRITE NEGATIVE (NEGATIVE); URINE PROTEIN NEGATIVE (NEGATIVE); URINE RBC 2 /hpf (0-4); URINE UROBILINOGEN 0.2 mg/dL (0.2-1.0); URINE WBC 2 /hpf (0-5)
[2018-12-22] MEDS: THIAMINE HCL 100 MG TABLET (FP) PO SCH (21:12)
[2018-12-23] MEDS: SULFAMETHOXAZOLE/TRIMETHOPRIM 800MG/160MG D.S. TABLET PO SCH ×2 (10:02→21:12)
[2018-12-23] MEDS: BACITRACIN 0.9 GM PACKET TP PRN (10:02)
[2018-12-23] MEDS: PRENATAL VITAMINS W/ FOLIC ACID TABLET (FP) PO SCH (10:02)
[2018-12-23] MEDS: THIAMINE HCL 100 MG TABLET (FP) PO SCH (21:11)
[2018-12-24] MEDS: PRENATAL VITAMINS W/ FOLIC ACID TABLET (FP) PO SCH (10:03)
[2018-12-24] MEDS: SULFAMETHOXAZOLE/TRIMETHOPRIM 800MG/160MG D.S. TABLET PO SCH (10:03)
[2018-12-24] MEDS: THIAMINE HCL 100 MG TABLET (FP) PO SCH (21:02)
[2018-12-25] MEDS: PRENATAL VITAMINS W/ FOLIC ACID TABLET (FP) PO SCH (09:48)
[2018-12-25] MEDS: BACITRACIN 0.9 GM PACKET TP PRN (09:49)
[2018-12-25] MEDS: THIAMINE HCL 100 MG TABLET (FP) PO SCH (21:03)
[2018-12-26] MEDS: PRENATAL VITAMINS W/ FOLIC ACID TABLET (FP) PO SCH (09:39)
[2018-12-26] MEDS: THIAMINE HCL 100 MG TABLET (FP) PO SCH (21:53)
[2018-12-27] MEDS: PRENATAL VITAMINS W/ FOLIC ACID TABLET (FP) PO SCH (09:53)
[2018-12-27] MEDS: THIAMINE HCL 100 MG TABLET (FP) PO SCH (21:49)
[2018-12-28] MEDS: PRENATAL VITAMINS W/ FOLIC ACID TABLET (FP) PO SCH (10:11)
--- NOTE | 2018-12-28 11:41 | PN ---
[facility] Progress Note (SOAP) Subjective: PT IS SCHEDULED TO DISCHARGE ON 12/31/18. PT MET WITH HER COUNSELOR AND HAS BEEN REFERRED TO CD AFTERCARE AT [facility] AT [address], [place]. PT REPORTS SHE HAS PRIMARY CARE WITH [facility] ON [facility], [place]. PT IS ALERT O X 3. DENIES S/H/ I. Objective: 12/28/18 11:40 Vital Signs - 24 hr 12/28/18 12/28/18 12/28/18 00:30 03:30 07:14 Temperature 98.1 F Pulse Rate 72 Respiratory 17 18 18 Rate Blood Pressure 107/68 Laboratory Tests 12/03/18 12/03/18 12/04/18 09:50 19:42 08:30 WBC 6.1 RBC 3.81 Hgb 11.9 Hct 36.3 MCV 95.2 MCH 31.2 MCHC 32.8 RDW 14.8 Plt Count 303 MPV 7.9 Sodium Potassium Chloride Carbon Dioxide Anion Gap BUN Creatinine Est GFR (CKD-EPI)AfAm Est GFR (CKD-EPI)NonAf Random Glucose Calcium Total Bilirubin AST ALT Alkaline Phosphatase Total Protein Albumin Urine Color Urine Appearance Urine pH Ur Specific [place] Urine Protein Urine Glucose (UA) Urine Ketones Urine Blood Urine Nitrite Urine Bilirubin Urine Urobilinogen Ur Leukocyte Esterase Urine WBC (Auto) Urine RBC (Auto) Urine Casts (Auto) U Epithel Cells (Auto) Urine Bacteria (Auto) POC Urine HCG, Qual Negative Negative RPR Titer HIV 1&2 Antibody Screen HIV P24 Antigen 12/04/18 12/04/18 12/04/18 08:30 08:30 08:30 WBC RBC Hgb Hct MCV MCH MCHC RDW Plt Count MPV Sodium 139 Potassium 4.2 Chloride 106 Carbon Dioxide 28 Anion Gap 5 L BUN 8 Creatinine 0.6 Est GFR (CKD-EPI)AfAm 124.92 Est GFR (CKD-EPI)NonAf 107.78 Random Glucose 116 H Calcium 8.7 Total Bilirubin 0.3 AST 12 L ALT 20 Alkaline Phosphatase 62 Total Protein 6.8 Albumin 3.3 L Urine Color Urine Appearance Urine pH Ur Specific [place] Urine Protein Urine Glucose (UA) Urine Ketones Urine Blood Urine Nitrite Urine Bilirubin Urine Urobilinogen Ur Leukocyte Esterase Urine WBC (Auto) Urine RBC (Auto) Urine Casts (Auto) U Epithel Cells (Auto) Urine Bacteria (Auto) POC Urine HCG, Qual RPR Titer Nonreactive HIV 1&2 Antibody Screen Negative HIV P24 Antigen Negative 12/04/18 12/15/18 12/22/18 10:30 Unknown 09:00 WBC RBC Hgb Hct MCV MCH MCHC RDW Plt Count MPV Sodium Potassium Chloride Carbon Dioxide Anion Gap BUN Creatinine Est GFR (CKD-EPI)AfAm Est GFR (CKD-EPI)NonAf Random Glucose Calcium Total Bilirubin AST ALT Alkaline Phosphatase Total Protein Albumin Urine Color Yellow Yellow Yellow Urine Appearance Clear Clear Clear Urine pH 7.0 D 5.0 D 7.5 D Ur Specific [place] 1.016 1.014 1.021 Urine Protein Negative Negative Negative Urine Glucose (UA) Negative Negative Negative Urine Ketones Negative Negative Negative Urine Blood Negative Negative Negative Urine Nitrite Positive H Positive H Negative Urine Bilirubin Negative Negative Negative Urine Urobilinogen 0.2 0.2 0.2 Ur Leukocyte Esterase Negative Negative Trace Urine WBC (Auto) 1 1 2 Urine RBC (Auto) 1 0 2 Urine Casts (Auto) 10 1 0 U Epithel Cells (Auto) 1.5 0.2 0.8 Urine Bacteria (Auto) >9000 2772.9 2.5 POC Urine HCG, Qual RPR Titer HIV 1&2 Antibody Screen HIV P24 Antigen REPEAT UA MUCH IMPROVED. Assessment: 12/28/18 11:40 NAD MEDICALLY STABLE Plan: FOLLOW UP WITH C AFTERCARE RECOMMENDATION. FOLLOW UP WITH PCP FOR MEDICAL MANAGEMENT 1-2 WEEKS AFTER DISCHARGE.
[2018-12-28] MEDS: THIAMINE HCL 100 MG TABLET (FP) PO SCH (21:33)
[2018-12-28] MEDS: BACITRACIN 0.9 GM PACKET TP PRN (21:34)
[2018-12-29] MEDS: PRENATAL VITAMINS W/ FOLIC ACID TABLET (FP) PO SCH (09:37)
[2018-12-29] MEDS: THIAMINE HCL 100 MG TABLET (FP) PO SCH (21:47)
[2018-12-30] MEDS: PRENATAL VITAMINS W/ FOLIC ACID TABLET (FP) PO SCH (09:49)
[2018-12-30] MEDS: IBUPROFEN 400 MG TABLET (FP) PO PRN (21:21)
[2018-12-30] MEDS: THIAMINE HCL 100 MG TABLET (FP) PO SCH (21:21)
[2018-12-31 07:04] VITALS: BP 108/68; PULSE 78; TEMP 97.7
--- NOTE | 2018-12-31 12:32 | PN ---
S Progress Note Note: PT COMPLETED REHAB AND DISCHARGED TODAY. ALERT O X 3. NAD. D/W PT TO FOLLOW UP WITH AFTERCARE/MEDICAL RECOMMENDED. Vital Signs - 24 hr 12/31/18 12/31/18 12/31/18 00:30 03:30 07:03 Temperature 97.7 F Pulse Rate 78 Respiratory 18 18 18 Rate Blood Pressure 108/68
== END 2018-12-31 09:20 | disposition home or self-care (01) | DRG 772 ==
LOC: YASAS 15:04 → Y3E 23:37
PROVIDERS: ADMIT Neuromusculoskeletal Medicine & OMM; ATTEND Neuromusculoskeletal Medicine & OMM
PROC: HZ42ZZZ Group Counseling for Substance Abuse Treatment, Cognitive-Behavioral (ICD-10-PCS; principal; 2018-12-03)
DX: F16.20 Hallucinogen dependence, uncomplicated (principal); L30.8 Other specified dermatitis; N39.0 Urinary tract infection, site not specified
CPT/HCPCS: 36415; 80053; 81003; 81025; 85027; 86593; 87086; 87186; 87389

== ENCOUNTER 2020-10-02 15:14 | Inpatient (IN) | payer OTHER ==
[2020-10-03] MEDS ORDERED: IBUPROFEN 400 MG TABLET (FP) PO PRN (01:29)
[2020-10-03] MEDS ORDERED: guaiFENesin 200 MG/10 ML 10 ML UNIT-DOSE CUPS PO PRN (01:29)
[2020-10-03] MEDS ORDERED: P-EPHED 60MG/TRIPROLIDI 2.5MG TABLET PO PRN (01:29)
[2020-10-03] MEDS ORDERED: MAG HYDROX/AL HYDROX/SIMETH 30 ML UNIT-DOSE CUP PO PRN (01:29)
[2020-10-03] MEDS ORDERED: MAGNESIUM CITRATE 300 ML BOTTLE PO PRN (01:29)
[2020-10-03] MEDS ORDERED: MAGNESIUM HYDROX 2400MG/30ML ORAL SUSPENSION 30 ML CUP PO PRN (01:29)
[2020-10-03] MEDS ORDERED: LOPERAMIDE HCL 2 MG CAPSULE PO PRN (01:29)
[2020-10-03] MEDS ORDERED: TUBERCULIN PPD 5 TU/0.1ML VIAL ID ONE (03:19)
[2020-10-03 06:58] VITALS: BMI 31.8
[2020-10-03] MEDS: hydrOXYzine PAMOATE 25 MG CAPSULE (FP) PO SCH ×5 (07:18→21:58)
[2020-10-03] MEDS: PRENATAL VITAMINS W/ FOLIC ACID TABLET (FP) PO SCH (09:37)
[2020-10-03 09:53] LABS: HEMATOCRIT 35.3 % (32.4-45.2); HEMOGLOBIN 11.6 GM/dL (10.7-15.3); MCH 30.2 pg (25.7-33.7); MEAN CELL VOLUME 91.6 fl (80-96); PLATELET COUNT 192 K/MM3 (134-434); RBC 3.85 M/mm3 (3.60-5.2); RDW 15.2 % (11.6-15.6); WHITE BLOOD COUNT 6.5 K/mm3 (4.0-10.0)
[2020-10-03 10:26] LABS: CALCIUM 8.7 mg/dL (8.5-10.1)
[2020-10-03 10:27] LABS: ALBUMIN 2.9 g/dl (3.4-5.0); BLOOD UREA NITROGEN 11.1 mg/dL (7-18)
[2020-10-03 10:30] LABS: CREATININE 0.6 mg/dL (0.55-1.3)
[2020-10-03 10:32] LABS: BILIRUBIN,TOTAL 0.3 mg/dL (0.2-1); TOT PROT 6.3 g/dl (6.4-8.2)
[2020-10-03 11:15] LABS: HIV INTERPRETATION NEGATIVE (NEGATIVE)
[2020-10-03] MEDS ORDERED: FLU VACCINE (FLULAVAL) PF 60 MCG/0.5 ML SYRINGE 2020-2021 IM ONE (12:00)
[2020-10-03 15:15] LABS: URINE APPEARANCE CLEAR; URINE BILIRUBIN NEGATIVE (NEGATIVE); URINE COLOR YELLOW; URINE GLUCOSE (UA) NEGATIVE (NEGATIVE); URINE KETONE NEGATIVE (NEGATIVE); URINE LEUK ESTERASE NEGATIVE (NEGATIVE); URINE NITRITE NEGATIVE (NEGATIVE); URINE PROTEIN NEGATIVE (NEGATIVE); URINE UROBILINOGEN 0.2 mg/dL (0.2-1.0)
[2020-10-03] MEDS: THIAMINE HCL 100 MG TABLET (FP) PO SCH (21:58)
[2020-10-03] MEDS: MELATONIN 5 MG TABLETS PO SCH (21:58)
[2020-10-03] MEDS: ACETAMINOPHEN 325 MG TABLET (FP) PO PRN (21:59)
[2020-10-04] MEDS: hydrOXYzine PAMOATE 25 MG CAPSULE (FP) PO SCH ×5 (06:46→21:14)
[2020-10-04] MEDS: ACETAMINOPHEN 325 MG TABLET (FP) PO PRN ×2 (06:48→21:16)
[2020-10-04] MEDS: PRENATAL VITAMINS W/ FOLIC ACID TABLET (FP) PO SCH (09:37)
[2020-10-04] MEDS: THIAMINE HCL 100 MG TABLET (FP) PO SCH (21:14)
[2020-10-04] MEDS: MELATONIN 5 MG TABLETS PO SCH (21:14)
[2020-10-05] MEDS: hydrOXYzine PAMOATE 25 MG CAPSULE (FP) PO SCH ×2 (06:27→09:37)
[2020-10-05] MEDS: ACETAMINOPHEN 325 MG TABLET (FP) PO PRN (06:28)
[2020-10-05] MEDS: PRENATAL VITAMINS W/ FOLIC ACID TABLET (FP) PO SCH (09:37)
[2020-10-05] MEDS: LIDOCAINE 5% TOPICAL PATCH TP SCH (13:41)
[2020-10-05] MEDS: LIDOCAINE PATCH REMOVAL MC SCH (21:48)
[2020-10-05] MEDS: hydrOXYzine PAMOATE 25 MG CAPSULE (FP) PO PRN (21:49)
[2020-10-05] MEDS: MELATONIN 5 MG TABLETS PO SCH (21:49)
[2020-10-05] MEDS: THIAMINE HCL 100 MG TABLET (FP) PO SCH (21:49)
[2020-10-06] MEDS: ACETAMINOPHEN 325 MG TABLET (FP) PO PRN (06:32)
[2020-10-06] MEDS: PRENATAL VITAMINS W/ FOLIC ACID TABLET (FP) PO SCH (09:44)
[2020-10-06] MEDS: LIDOCAINE 5% TOPICAL PATCH TP SCH (09:44)
[2020-10-06] MEDS: MELATONIN 5 MG TABLETS PO SCH (21:04)
[2020-10-06] MEDS: LIDOCAINE PATCH REMOVAL MC SCH (21:04)
[2020-10-06] MEDS: THIAMINE HCL 100 MG TABLET (FP) PO SCH (21:05)
[2020-10-06] MEDS: hydrOXYzine PAMOATE 25 MG CAPSULE (FP) PO PRN (21:06)
[2020-10-07] MEDS: ACETAMINOPHEN 325 MG TABLET (FP) PO PRN (06:58)
[2020-10-07] MEDS: PRENATAL VITAMINS W/ FOLIC ACID TABLET (FP) PO SCH (09:43)
[2020-10-07] MEDS: LIDOCAINE 5% TOPICAL PATCH TP SCH (09:43)
[2020-10-07] MEDS: hydrOXYzine PAMOATE 25 MG CAPSULE (FP) PO PRN (09:44)
[2020-10-07] MEDS: METHOCARBAMOL 500 MG TABLET PO PRN ×2 (12:34→21:47)
[2020-10-07] MEDS: LIDOCAINE PATCH REMOVAL MC SCH (21:46)
[2020-10-07] MEDS: THIAMINE HCL 100 MG TABLET (FP) PO SCH (21:46)
[2020-10-07] MEDS: MELATONIN 5 MG TABLETS PO SCH (21:46)
[2020-10-08] MEDS: METHOCARBAMOL 500 MG TABLET PO PRN ×3 (06:53→21:55)
[2020-10-08] MEDS: PRENATAL VITAMINS W/ FOLIC ACID TABLET (FP) PO SCH (10:27)
[2020-10-08] MEDS: LIDOCAINE 5% TOPICAL PATCH TP SCH (10:27)
[2020-10-08] MEDS: MELATONIN 5 MG TABLETS PO SCH (21:55)
[2020-10-08] MEDS: LIDOCAINE PATCH REMOVAL MC SCH (21:55)
[2020-10-08] MEDS: THIAMINE HCL 100 MG TABLET (FP) PO SCH (21:55)
[2020-10-09] MEDS: METHOCARBAMOL 500 MG TABLET PO PRN ×2 (06:47→21:34)
[2020-10-09] MEDS: PRENATAL VITAMINS W/ FOLIC ACID TABLET (FP) PO SCH (10:42)
[2020-10-09] MEDS: LIDOCAINE 5% TOPICAL PATCH TP SCH (10:42)
[2020-10-09] MEDS: ACETAMINOPHEN 325 MG TABLET (FP) PO PRN ×2 (10:43→21:34)
[2020-10-09] MEDS: LIDOCAINE PATCH REMOVAL MC SCH (21:32)
[2020-10-09] MEDS: MELATONIN 5 MG TABLETS PO SCH (21:33)
[2020-10-09] MEDS: THIAMINE HCL 100 MG TABLET (FP) PO SCH (21:34)
[2020-10-10] MEDS: ACETAMINOPHEN 325 MG TABLET (FP) PO PRN ×2 (06:31→21:30)
[2020-10-10] MEDS: METHOCARBAMOL 500 MG TABLET PO PRN ×2 (06:31→21:30)
[2020-10-10] MEDS: PRENATAL VITAMINS W/ FOLIC ACID TABLET (FP) PO SCH (10:11)
[2020-10-10] MEDS: LIDOCAINE 5% TOPICAL PATCH TP SCH (10:12)
[2020-10-10] MEDS: THIAMINE HCL 100 MG TABLET (FP) PO SCH (21:29)
[2020-10-10] MEDS: MELATONIN 5 MG TABLETS PO SCH (21:29)
[2020-10-10] MEDS: LIDOCAINE PATCH REMOVAL MC SCH (21:32)
[2020-10-11] MEDS: ACETAMINOPHEN 325 MG TABLET (FP) PO PRN ×2 (06:43→21:38)
[2020-10-11] MEDS: METHOCARBAMOL 500 MG TABLET PO PRN ×2 (06:43→21:38)
[2020-10-11] MEDS: PRENATAL VITAMINS W/ FOLIC ACID TABLET (FP) PO SCH (10:03)
[2020-10-11] MEDS: LIDOCAINE 5% TOPICAL PATCH TP SCH (10:03)
[2020-10-11] MEDS: LIDOCAINE PATCH REMOVAL MC SCH (21:34)
[2020-10-11] MEDS: THIAMINE HCL 100 MG TABLET (FP) PO SCH (21:34)
[2020-10-11] MEDS: MELATONIN 5 MG TABLETS PO SCH (21:34)
[2020-10-11] MEDS: hydrOXYzine PAMOATE 25 MG CAPSULE (FP) PO PRN (21:38)
[2020-10-12] MEDS: ACETAMINOPHEN 325 MG TABLET (FP) PO PRN (06:46)
[2020-10-12] MEDS: METHOCARBAMOL 500 MG TABLET PO PRN ×2 (06:46→21:12)
[2020-10-12] MEDS: PRENATAL VITAMINS W/ FOLIC ACID TABLET (FP) PO SCH (09:48)
[2020-10-12] MEDS: LIDOCAINE 5% TOPICAL PATCH TP SCH (09:48)
[2020-10-12] MEDS ORDERED: COLLOIDAL OATMEAL 1 BAR EACH TP PRN (10:42)
[2020-10-12] MEDS: THIAMINE HCL 100 MG TABLET (FP) PO SCH (21:11)
[2020-10-12] MEDS: MELATONIN 5 MG TABLETS PO SCH (21:11)
[2020-10-12] MEDS: LIDOCAINE PATCH REMOVAL MC SCH (21:12)
[2020-10-13] MEDS: ACETAMINOPHEN 325 MG TABLET (FP) PO PRN (06:45)
[2020-10-13] MEDS: METHOCARBAMOL 500 MG TABLET PO PRN ×2 (06:45→21:19)
[2020-10-13] MEDS: PRENATAL VITAMINS W/ FOLIC ACID TABLET (FP) PO SCH (09:55)
[2020-10-13] MEDS: LIDOCAINE 5% TOPICAL PATCH TP SCH (09:55)
[2020-10-13] MEDS: LIDOCAINE PATCH REMOVAL MC SCH (21:18)
[2020-10-13] MEDS: MELATONIN 5 MG TABLETS PO SCH (21:18)
[2020-10-13] MEDS: THIAMINE HCL 100 MG TABLET (FP) PO SCH (21:19)
[2020-10-14] MEDS: ACETAMINOPHEN 325 MG TABLET (FP) PO PRN (06:26)
[2020-10-14] MEDS: METHOCARBAMOL 500 MG TABLET PO PRN ×2 (06:27→21:54)
[2020-10-14] MEDS: PRENATAL VITAMINS W/ FOLIC ACID TABLET (FP) PO SCH (09:43)
[2020-10-14] MEDS: LIDOCAINE 5% TOPICAL PATCH TP SCH (09:43)
[2020-10-14] MEDS: MELATONIN 5 MG TABLETS PO SCH (21:54)
[2020-10-14] MEDS: THIAMINE HCL 100 MG TABLET (FP) PO SCH (21:54)
[2020-10-14] MEDS: LIDOCAINE PATCH REMOVAL MC SCH (21:54)
[2020-10-14] MEDS: hydrOXYzine PAMOATE 25 MG CAPSULE (FP) PO PRN (21:54)
[2020-10-15] MEDS: METHOCARBAMOL 500 MG TABLET PO PRN (06:22)
[2020-10-15] MEDS: ACETAMINOPHEN 325 MG TABLET (FP) PO PRN ×2 (06:22→10:04)
[2020-10-15] MEDS: LIDOCAINE 5% TOPICAL PATCH TP SCH (10:02)
[2020-10-15] MEDS: PRENATAL VITAMINS W/ FOLIC ACID TABLET (FP) PO SCH (10:03)
[2020-10-15] MEDS: LIDOCAINE PATCH REMOVAL MC SCH (21:40)
[2020-10-15] MEDS: THIAMINE HCL 100 MG TABLET (FP) PO SCH (21:40)
[2020-10-15] MEDS: MELATONIN 5 MG TABLETS PO SCH (21:40)
[2020-10-16 06:39] VITALS: BP 123/77; PULSE 91; TEMP 98.2
[2020-10-16] MEDS: PRENATAL VITAMINS W/ FOLIC ACID TABLET (FP) PO SCH (09:06)
[2020-10-16] MEDS: LIDOCAINE 5% TOPICAL PATCH TP SCH (09:08)
== END 2020-10-16 10:20 | disposition home or self-care (01) | DRG 772 ==
LOC: YASAS 15:14 → Y5N 10-03 01:22
PROVIDERS: ADMIT Allergy & Immunology; ATTEND Allergy & Immunology
PROC: HZ42ZZZ Group Counseling for Substance Abuse Treatment, Cognitive-Behavioral (ICD-10-PCS; principal; 2020-10-03)
DX: F16.20 Hallucinogen dependence, uncomplicated (principal); F19.24 Other psychoactive substance dependence with psychoactive substance-induced mood disorder; D69.3 Immune thrombocytopenic purpura; M41.9 Scoliosis, unspecified; M54.5 Low back pain; G89.29 Other chronic pain; Z90.81 Acquired absence of spleen; Z59.0 Homelessness
CPT/HCPCS: 36415; 80053; 81003; 81025; 85027; 86780; 87389; 93005; 93010; C9803; G0008; Q2036; U0003

== ENCOUNTER 2021-03-14 06:06 | Emergency (ER) | payer OTHER ==
[2021-03-14 06:24] VITALS: BMI 29.0
[2021-03-14 07:34] VITALS: TEMP 98
[2021-03-14] MEDS ORDERED: IBUPROFEN 600 MG TABLET (FP) PO ONE ×2 (09:15→09:18)
[2021-03-14 11:09] VITALS: BP 107/65; PULSE 78
== END 2021-03-14 11:10 ==
LOC: JER 06:06
DX: S39.012A Strain of muscle, fascia and tendon of lower back, initial encounter (principal); Y99.8 Other external cause status
CPT/HCPCS: 99283-25

== ENCOUNTER 2021-08-01 01:53 | Emergency (ER) | payer OTHER ==
[2021-08-01 02:19] VITALS: BMI 29.0
[2021-08-01 04:17] VITALS: BP 114/71; PULSE 92; TEMP 98.2
== END 2021-08-01 04:19 | disposition home or self-care (01) ==
LOC: JER 01:53
DX: R05.9 Cough, unspecified (principal)
CPT/HCPCS: 87804; 99283-25; C9803; U0003; U0005

== ENCOUNTER 2021-09-03 03:06 | Emergency (ER) | payer OTHER ==
[2021-09-03 03:17] VITALS: BMI 37.8
[2021-09-03 05:26] LABS: BASO % 0.6 % (0-2.0); EOS % 0.4 % (0-4.5); HEMATOCRIT 40.2 % (32.4-45.2); HEMOGLOBIN 12.8 GM/dL (10.7-15.3); LYMPH % 15.8 % (8-40); MCH 29.8 pg (25.7-33.7); MEAN CELL VOLUME 93.1 fl (80-96); MEAN PLT VOLUME 7.6 fl (7.5-11.1); MONO % 7.5 % (3.8-10.2); NEUT % 75.7 % (42.8-82.8); PLATELET COUNT 354 10^3/uL (134-434); RBC 4.31 M/mm3 (3.60-5.2); RDW 14.3 % (11.6-15.6); WHITE BLOOD COUNT 12.8 K/mm3 (4.0-10.0)
[2021-09-03 05:39] LABS: INR 1.03 (0.83-1.09); PROTHROMBIN TIME (PATIENT) 11.9 SEC (9.7-13.0)
[2021-09-03 05:42] LABS: ACTIVATED PTT 29.5 SECONDS (25.2-36.5)
[2021-09-03 05:57] LABS: BLOOD UREA NITROGEN 13.3 mg/dL (7-18); CALCIUM 9.1 mg/dL (8.5-10.1)
[2021-09-03 06:01] LABS: CREATININE 0.7 mg/dL (0.55-1.3)
[2021-09-03 06:02] LABS: BILIRUBIN,TOTAL 0.4 mg/dL (0.2-1); TOT PROT 7.8 g/dl (6.4-8.2)
[2021-09-03] MEDS ORDERED: ACETAMINOPHEN 1000 MG/100 ML BAG IVPB ONE (11:17)
[2021-09-03] MEDS ORDERED: ACETAMINOPHEN INJECTION 100 ML IVPB ONE (11:38)
[2021-09-03 12:40] VITALS: BP 113/70; PULSE 82; TEMP 97.9
== END 2021-09-03 12:30 | disposition home or self-care (01) ==
LOC: JER 03:06
PROC: 3E033GC Introduction of Other Therapeutic Substance into Peripheral Vein, Percutaneous Approach (ICD-10-PCS; principal; 2021-09-03)
DX: S02.2XXA Fracture of nasal bones, initial encounter for closed fracture (principal); R59.9 Enlarged lymph nodes, unspecified; Y04.8XXA Assault by other bodily force, initial encounter
CPT/HCPCS: 36415; 70450-TC; 70486-TC; 71046-TC-FY; 71260-TC; 72125-TC; 72128-TC; 72131-TC; 73030-TC-LT-FY; 73070-TC-LT-FY; 73564-TC-LT-FY; 74177-TC; 80053; 85025; 85610; 85730; 86850; 86900; 86901; 99285-25; Q9967

== ENCOUNTER 2021-10-10 15:04 | Emergency (ER) | payer OTHER ==
[2021-10-10 15:36] VITALS: BP 125/78; PULSE 78; TEMP 98.2; BMI 29.0
[2021-10-10] MEDS ORDERED: LORATADINE 10 MG TABLET PO ONE (16:04)
[2021-10-10] MEDS ORDERED: LORATADINE 10 MG TABLET ONE (16:05)
== END 2021-10-10 16:53 | disposition home or self-care (01) ==
LOC: JER 15:04
DX: R05.9 Cough, unspecified (principal)
CPT/HCPCS: 71046-TC-FY; 99283-25

== ENCOUNTER 2021-11-15 20:42 | Emergency (ER) | payer OTHER ==
[2021-11-15 21:24] VITALS: BP 106/66; BMI 29.0
[2021-11-15] MEDS ORDERED: predniSONE 20 MG TABLET (UD) PO ONE (22:02)
[2021-11-15] MEDS ORDERED: ALBUTEROL SO4 2.5/IPRATROPIUM 0.5 INH SOL 3 ML VIAL.NEB. NEB ONE ×2 (22:02→22:07)
[2021-11-15] MEDS ORDERED: predniSONE 20 MG TABLET (UD) ONE (22:07)
[2021-11-15 22:49] VITALS: PULSE 92; TEMP 98.3
[2021-11-17 16:09] LABS: SARS-CoV-2 NAA Not Detected (Not Detected)
== END 2021-11-15 22:49 | disposition home or self-care (01) ==
LOC: JERFT 20:42 → JER 20:42 → JERFT 22:49
PROC: 3E0F7GC Introduction of Other Therapeutic Substance into Respiratory Tract, Via Natural or Artificial Opening (ICD-10-PCS; principal; 2021-11-15)
DX: R05.1 Acute cough (principal); R09.81 Nasal congestion
CPT/HCPCS: 71046-TC-FY; 87804; 99284-25; C9803-CS; U0003; U0005

== ENCOUNTER 2022-01-07 07:58 | Emergency (ER) | payer OTHER ==
[2022-01-07 08:09] VITALS: BP 109/76; PULSE 89; TEMP 98.3; BMI 29.0
[2022-01-07] MEDS ORDERED: DOCUSATE SODIUM 100 MG CAPSULE (FP) PO ONE (10:02)
== END 2022-01-07 12:30 | disposition home or self-care (01) ==
LOC: JER 07:58
DX: S52.531A Colles' fracture of right radius, initial encounter for closed fracture (principal); Y99.9 Unspecified external cause status
CPT/HCPCS: 73110-TC-RT-FY; 73130-TC-RT-FY; 99283-25

== ENCOUNTER 2022-02-02 16:32 | Emergency (ER) | payer OTHER ==
[2022-02-02 16:53] VITALS: BP 106/73; PULSE 83; TEMP 98.4; BMI 29.0
[2022-02-02] MEDS ORDERED: CLINDAMYCIN HCL 150 MG CAPSULE (FP) PO ONE (18:22)
[2022-02-02] MEDS ORDERED: CLINDAMYCIN HCL 150 MG CAPSULE (FP) ONE (18:23)
== END 2022-02-02 18:40 | disposition home or self-care (01) ==
LOC: JERFT 16:32
DX: L03.113 Cellulitis of right upper limb (principal)
CPT/HCPCS: 99283-25

== ENCOUNTER 2022-05-19 02:09 | Inpatient (IN) | payer OTHER ==
[2022-05-19 02:19] VITALS: BMI 29.0
[2022-05-19 03:55] LABS: BASO % 0.7 % (0-2.0); EOS % 3.4 % (0-4.5); HEMATOCRIT 36.1 % (32.4-45.2); HEMOGLOBIN 12.1 GM/dL (10.7-15.3); MCH 30.5 pg (25.7-33.7); MCHC 33.5 g/dl (32.0-36.0); MEAN CELL VOLUME 91.3 fl (80-96); MEAN PLT VOLUME 9.3 fl (7.5-11.1); MONO % 10.6 % (3.8-10.2); NEUT % 39.3 % (42.8-82.8); RBC 3.95 M/mm3 (3.60-5.2); RDW 13.6 % (11.6-15.6); WHITE BLOOD COUNT 6.3 K/mm3 (4.0-10.0)
[2022-05-19 04:00] LABS: PLATELET COUNT 21 10^3/uL (134-434)
[2022-05-19 04:09] LABS: ALBUMIN 3.2 g/dl (3.4-5.0); BLOOD UREA NITROGEN 12.2 mg/dL (7-18); CALCIUM 8.4 mg/dL (8.5-10.1)
[2022-05-19 04:13] LABS: CREATININE 0.5 mg/dL (0.55-1.3)
[2022-05-19 04:14] LABS: BILIRUBIN,TOTAL 0.2 mg/dL (0.2-1)
[2022-05-19 04:15] LABS: TOT PROT 6.4 g/dl (6.4-8.2)
[2022-05-19 09:02] LABS: BASO % 0.7 % (0-2.0); EOS % 2.9 % (0-4.5); HEMATOCRIT 37.8 % (32.4-45.2); HEMOGLOBIN 12.4 GM/dL (10.7-15.3); LYMPH % 43.9 % (8-40); MCH 30.3 pg (25.7-33.7); MCHC 32.9 g/dl (32.0-36.0); MEAN PLT VOLUME 9.9 fl (7.5-11.1); MONO % 8.7 % (3.8-10.2); NEUT % 43.8 % (42.8-82.8); WHITE BLOOD COUNT 5.9 K/mm3 (4.0-10.0)
[2022-05-19 09:05] LABS: PLATELET COUNT 22 10^3/uL (134-434)
[2022-05-19] MEDS ORDERED: POTASSIUM CHLORIDE TABS 20 MEQ TABLET.ER (FP) PO ONE ×2 (10:05→10:46)
[2022-05-19] MEDS ORDERED: DEXAMETHASONE SOD PHOSPHATE 10 MG/1 ML VIAL IVPB ONE (20:15)
[2022-05-19] MEDS ORDERED: DEXAMETHASONE SOD PHOSPHATE 10 MG/1 ML VIAL IVPUSH ONE (20:15)
[2022-05-20] MEDS: DEXAMETHASONE 4 MG TABLET (FP) PO SCH (09:16)
[2022-05-20 11:38] LABS: HEMATOCRIT 40.5 % (32.4-45.2); HEMOGLOBIN 13.5 GM/dL (10.7-15.3); LYMPH % 9.9 % (8-40); MCH 30.3 pg (25.7-33.7); MCHC 33.3 g/dl (32.0-36.0); MEAN CELL VOLUME 90.8 fl (80-96); MEAN PLT VOLUME 10.9 fl (7.5-11.1); MONO % 1.5 % (3.8-10.2); NEUT % 88.6 % (42.8-82.8); PLATELET COUNT 42 10^3/uL (134-434); RBC 4.46 M/mm3 (3.60-5.2); RDW 13.6 % (11.6-15.6); WHITE BLOOD COUNT 11.4 K/mm3 (4.0-10.0)
[2022-05-20 11:45] LABS: INR 1.09 (0.83-1.09); PROTHROMBIN TIME (PATIENT) 12.6 SEC (9.7-13.0)
[2022-05-20 11:47] LABS: ACTIVATED PTT 27.6 SECONDS (25.2-36.5)
[2022-05-20 12:07] LABS: ALBUMIN 3.7 g/dl (3.4-5.0); BLOOD UREA NITROGEN 12.6 mg/dL (7-18); CALCIUM 9.2 mg/dL (8.5-10.1)
[2022-05-20 12:08] LABS: MAGNESIUM 2.2 mg/dL (1.8-2.4)
[2022-05-20 12:10] LABS: CREATININE 0.6 mg/dL (0.55-1.3); PHOSPHOROUS 2.9 mg/dL (2.5-4.9)
[2022-05-20 12:12] LABS: BILIRUBIN,TOTAL 0.4 mg/dL (0.2-1); TOT PROT 7.7 g/dl (6.4-8.2)
[2022-05-20 15:57] LABS: EPI CELLS 17 /uL (0-25.1); HYALINE CASTS 2 /uL (0-3.1); URINE APPEARANCE Error; URINE BILIRUBIN NEGATIVE (NEGATIVE); URINE COLOR YELLOW; URINE GLUCOSE (UA) NEGATIVE (NEGATIVE); URINE KETONE NEGATIVE (NEGATIVE); URINE LEUK ESTERASE NEGATIVE (NEGATIVE); URINE NITRITE NEGATIVE (NEGATIVE); URINE PROTEIN NEGATIVE (NEGATIVE); URINE RBC 3 /uL (0-23.9); URINE UROBILINOGEN 0.2 mg/dL (0.2-1.0); URINE WBC 6 /uL (0-25.8)
[2022-05-20 19:49] LABS: URINE BARBITURATES NEGATIVE (NEGATIVE); URINE BENZODIAZEPINES NEGATIVE (NEGATIVE)
[2022-05-20 19:50] LABS: OPIATES, URI NEGATIVE (NEGATIVE)
[2022-05-20 19:55] LABS: COCAINE, UR NEGATIVE (NEGATIVE); METHADONE, UR NEGATIVE (NEGATIVE); PHENCYCLIDINE,URINE POSITIVE (NEGATIVE); URINE AMPHETAMINES NEGATIVE (NEGATIVE)
[2022-05-21] MEDS: DEXAMETHASONE 4 MG TABLET (FP) PO SCH (09:01)
[2022-05-21 10:35] LABS: BASO % 0.1 % (0-2.0); HEMATOCRIT 39.2 % (32.4-45.2); HEMOGLOBIN 12.7 GM/dL (10.7-15.3); LYMPH % 19.4 % (8-40); MCHC 32.4 g/dl (32.0-36.0); MEAN CELL VOLUME 92.5 fl (80-96); MEAN PLT VOLUME 10.9 fl (7.5-11.1); MONO % 4.9 % (3.8-10.2); NEUT % 75.6 % (42.8-82.8); PLATELET COUNT 97 10^3/uL (134-434); RBC 4.23 M/mm3 (3.60-5.2); WHITE BLOOD COUNT 14.4 K/mm3 (4.0-10.0)
[2022-05-21 10:58] LABS: CALCIUM 8.7 mg/dL (8.5-10.1)
[2022-05-21 10:59] LABS: ALBUMIN 3.5 g/dl (3.4-5.0); BLOOD UREA NITROGEN 10.2 mg/dL (7-18)
[2022-05-21 11:02] LABS: CREATININE 0.5 mg/dL (0.55-1.3)
[2022-05-21 11:04] LABS: BILIRUBIN,TOTAL 0.4 mg/dL (0.2-1); TOT PROT 7.2 g/dl (6.4-8.2)
[2022-05-21 15:40] VITALS: RESP 18
[2022-05-22] MEDS: DEXAMETHASONE 4 MG TABLET (FP) PO SCH (09:21)
[2022-05-22 11:37] LABS: BASO % 0.1 % (0-2.0); HEMATOCRIT 35.4 % (32.4-45.2); HEMOGLOBIN 11.8 GM/dL (10.7-15.3); LYMPH % 15.8 % (8-40); MCH 30.7 pg (25.7-33.7); MCHC 33.3 g/dl (32.0-36.0); MEAN CELL VOLUME 92.1 fl (80-96); MEAN PLT VOLUME 9.1 fl (7.5-11.1); MONO % 7.9 % (3.8-10.2); NEUT % 76.2 % (42.8-82.8); PLATELET COUNT 134 10^3/uL (134-434); RBC 3.84 M/mm3 (3.60-5.2); RDW 13.8 % (11.6-15.6); WHITE BLOOD COUNT 12.8 K/mm3 (4.0-10.0)
[2022-05-23] MEDS ORDERED: DEXAMETHASONE 4 MG TABLET (FP) PO ONE (10:00)
[2022-05-23 10:40] VITALS: BP 123/73; PULSE 69; TEMP 98
[2022-05-23 10:56] LABS: BASO % 0.1 % (0-2.0); HEMATOCRIT 37.7 % (32.4-45.2); HEMOGLOBIN 12.3 GM/dL (10.7-15.3); LYMPH % 21.5 % (8-40); MCH 30.1 pg (25.7-33.7); MCHC 32.7 g/dl (32.0-36.0); MEAN CELL VOLUME 91.8 fl (80-96); MEAN PLT VOLUME 9.3 fl (7.5-11.1); MONO % 11.2 % (3.8-10.2); NEUT % 67.2 % (42.8-82.8); PLATELET COUNT 205 10^3/uL (134-434); RBC 4.11 M/mm3 (3.60-5.2); RDW 13.6 % (11.6-15.6); WHITE BLOOD COUNT 11.3 K/mm3 (4.0-10.0)
[2022-05-23 11:41] LABS: CREATININE 0.6 mg/dL (0.55-1.3)
[2022-05-23 11:43] LABS: BILIRUBIN,TOTAL 0.2 mg/dL (0.2-1); BLOOD UREA NITROGEN 14.2 mg/dL (7-18); TOT PROT 6.8 g/dl (6.4-8.2)
[2022-05-23 11:45] LABS: ALBUMIN 3.4 g/dl (3.4-5.0)
[2022-05-23 11:47] LABS: CALCIUM 8.9 mg/dL (8.5-10.1)
[2022-05-24 15:07] LABS: E.chaff HME IgG Negative (Neg:<1:64)
== END 2022-05-23 14:58 | disposition home or self-care (01) | DRG 661 ==
LOC: JER 02:09 → JERBED 05:09 → OBSVTOIN 09:55 → INTOOBSV 09:55 → J5S 12:40 → OBSVTOIN 05-20 11:13 → J5S 05-22 19:29
PROVIDERS: ADMIT Internal Medicine
DX: D69.3 Immune thrombocytopenic purpura (principal); F19.20 Other psychoactive substance dependence, uncomplicated; D72.829 Elevated white blood cell count, unspecified; N39.0 Urinary tract infection, site not specified; E87.6 Hypokalemia
CPT/HCPCS: 0241U-QW; 36415; 70450-TC; 80053; 80307; 81003; 82930; 82962; 83735; 84100; 84703; 85025; 85032; 85610; 85730; 86618; 86666; 87086; 87186; 90832-95; 93005; 93010; 99285-25; G0378; J1100

== ENCOUNTER 2024-05-22 01:47 | Emergency (ER) | payer OTHER ==
[2024-05-22 01:56] VITALS: BP 106/64; PULSE 77; RESP 16; TEMP 97.7; BMI 32.1
[2024-05-22] MEDS ORDERED: ACETAMINOPHEN INJECTION 100 ML ONE (02:35)
[2024-05-22] MEDS ORDERED: ONDANSETRON 4 MG/2 ML VIAL ONE (02:35)
[2024-05-22 03:19] LABS: BASO % 0.5 % (0-2.0); EOS % 0.6 % (0-4.5); HEMATOCRIT 38.1 % (32.4-45.2); HEMOGLOBIN 12.8 GM/dL (10.7-15.3); LYMPH % 29.1 % (8-40); MCH 29.2 pg (25.7-33.7); MCHC 33.5 g/dl (32.0-36.0); MEAN CELL VOLUME 87.3 fl (80-96); MEAN PLT VOLUME 9.2 fl (7.5-11.1); MONO % 7.2 % (3.8-10.2); NEUT % 62.6 % (42.8-82.8); PLATELET COUNT 188 10^3/uL (134-434); RBC 4.36 M/mm3 (3.60-5.2); RDW 14.2 % (11.6-15.6); WHITE BLOOD COUNT 15.6 K/mm3 (4.0-10.0)
[2024-05-22] MEDS: ACETAMINOPHEN 1000 MG/100 ML BAG IVPB ONE (03:26)
[2024-05-22] MEDS: ONDANSETRON 4 MG/2 ML VIAL IVPUSH ONE (03:26)
[2024-05-22 03:58] LABS: CHLORIDE 106 mmol/L (98-107); SODIUM 140 mmol/L (136-145)
[2024-05-22 04:00] LABS: ALBUMIN 3.5 g/dl (3.4-5.0); BLOOD UREA NITROGEN 8.7 mg/dL (7-18); CALCIUM 8.5 mg/dL (8.5-10.1); CO2 28 mmol/L (21-32); MAGNESIUM 2.1 mg/dL (1.8-2.4)
[2024-05-22 04:01] LABS: GLUCOSE,RANDOM 108 mg/dL (74-106)
[2024-05-22 04:02] LABS: SGOT/AST 29 U/L (15-37); SGPT/ALT 44 U/L (13-61)
[2024-05-22 04:04] LABS: CREATININE 0.7 mg/dL (0.55-1.3)
[2024-05-22 04:05] LABS: BILIRUBIN,TOTAL 0.3 mg/dL (0.2-1); TOT PROT 8.3 g/dl (6.4-8.2)
[2024-05-22 04:06] LABS: ALK PHOS 83 U/L (45-117)
[2024-05-22 04:09] LABS: ANION GAP 7 mmol/L (4-13); POTASSIUM 2.9 mmol/L (3.5-5.1)
[2024-05-22] MEDS ORDERED: POTASSIUM CHLORIDE ORAL LIQUID 20 MEQ/15 ML ONE (04:16)
[2024-05-22] MEDS: POTASSIUM CHLORIDE ORAL LIQUID 20 MEQ/15 ML PO ONE (04:21)
[2024-05-22] MEDS ORDERED: LORATADINE 10 MG TABLET ONE (05:10)
[2024-05-22] MEDS: LORATADINE 10 MG TABLET PO ONE (05:37)
== END 2024-05-22 05:49 | disposition home or self-care (01) ==
LOC: JER 01:47
PROC: 3E033GC Introduction of Other Therapeutic Substance into Peripheral Vein, Percutaneous Approach (ICD-10-PCS; principal; 2024-05-22)
PROC: 3E033NZ Introduction of Analgesics, Hypnotics, Sedatives into Peripheral Vein, Percutaneous Approach (ICD-10-PCS; 2024-05-22)
DX: R51.9 Headache, unspecified (principal); E87.6 Hypokalemia; R07.9 Chest pain, unspecified; M79.602 Pain in left arm; R11.2 Nausea with vomiting, unspecified; Z20.822 Contact with and (suspected) exposure to COVID-19
CPT/HCPCS: 0241U-QW; 36415; 70450-TC; 70496-TC; 70498-TC; 71045-TC-FY; 80053; 83690; 83735; 84484; 85025; 93005; 93010; 99285-25; J0131

== ENCOUNTER 2024-05-22 07:02 | Emergency (ER) | payer OTHER ==
[2024-05-22 07:10] VITALS: BP 134/84; PULSE 79; RESP 18; TEMP 97.9; BMI 32.1
[2024-05-22] MEDS ORDERED: ONDANSETRON *ODT* 4 MG TABLET ONE (07:20)
[2024-05-22] MEDS ORDERED: ACETAMINOPHEN 500 MG TABLET (FP) ONE (07:20)
[2024-05-22] MEDS: ACETAMINOPHEN 500 MG TABLET (FP) PO ONE (07:25)
[2024-05-22] MEDS: ONDANSETRON *ODT* 4 MG TABLET SL ONE (07:26)
== END 2024-05-22 09:31 | disposition home or self-care (01) ==
LOC: JER 07:02
DX: R51.9 Headache, unspecified (principal); R11.0 Nausea; J32.0 Chronic maxillary sinusitis
CPT/HCPCS: 99283-25; Q0162

== ENCOUNTER 2024-05-23 16:13 | Emergency (ER) | payer OTHER ==
[2024-05-23 16:27] VITALS: BP 161/95; PULSE 61; RESP 17; TEMP 98.6; BMI 32.1
[2024-05-23] MEDS ORDERED: METOCLOPRAMIDE HCL INJECTION 10 MG/2 ML VIAL ONE (18:04)
[2024-05-23] MEDS ORDERED: ACETAMINOPHEN INJECTION 100 ML ONE (18:04)
[2024-05-23] MEDS: METOCLOPRAMIDE HCL INJECTION 10 MG/2 ML VIAL IVPB ONE (18:11)
[2024-05-23] MEDS: ACETAMINOPHEN 1000 MG/100 ML BAG IVPB ONE (18:11)
[2024-05-23 18:24] LABS: BASO % 0.5 % (0-2.0); EOS % 0.1 % (0-4.5); HEMATOCRIT 39.6 % (32.4-45.2); HEMOGLOBIN 13.3 GM/dL (10.7-15.3); LYMPH % 16.3 % (8-40); MCH 29.1 pg (25.7-33.7); MCHC 33.4 g/dl (32.0-36.0); MEAN CELL VOLUME 87.2 fl (80-96); MEAN PLT VOLUME 9.8 fl (7.5-11.1); MONO % 7.1 % (3.8-10.2); PLATELET COUNT 174 10^3/uL (134-434); RBC 4.55 M/mm3 (3.60-5.2); RDW 14.3 % (11.6-15.6); WHITE BLOOD COUNT 12.8 K/mm3 (4.0-10.0)
[2024-05-23 18:30] LABS: INR 1.11 (0.83-1.09); PROTHROMBIN TIME (PATIENT) 12.5 SEC (9.7-13.0)
[2024-05-23 18:43] LABS: POTASSIUM 3.9 mmol/L (3.5-5.1)
[2024-05-23 18:44] LABS: CALCIUM 9.4 mg/dL (8.5-10.1)
[2024-05-23 18:45] LABS: MAGNESIUM 2.3 mg/dL (1.8-2.4)
[2024-05-23 18:49] LABS: CREATININE 0.6 mg/dL (0.55-1.3)
[2024-05-23 19:38] LABS: HIV INTERPRETATION NEGATIVE (NEGATIVE)
[2024-05-23] MEDS ORDERED: PSEUDOEPHEDRINE HCL 60 MG TABLET ONE (19:52)
[2024-05-23] MEDS ORDERED: DEXAMETHASONE SOD PHOSPHATE 10 MG/1 ML VIAL ONE (19:52)
[2024-05-23] MEDS: PSEUDOEPHEDRINE HCL 30 MG TABLET PO ONE (20:02)
[2024-05-23] MEDS: DEXAMETHASONE SOD PHOSPHATE 10 MG/1 ML VIAL PO ONE (20:02)
== END 2024-05-23 21:55 | disposition home or self-care (01) ==
LOC: JER 16:13
PROC: 3E033NZ Introduction of Analgesics, Hypnotics, Sedatives into Peripheral Vein, Percutaneous Approach (ICD-10-PCS; principal; 2024-05-23)
PROC: 3E033GC Introduction of Other Therapeutic Substance into Peripheral Vein, Percutaneous Approach (ICD-10-PCS; 2024-05-23)
DX: R51.9 Headache, unspecified (principal); R09.81 Nasal congestion; R11.2 Nausea with vomiting, unspecified
CPT/HCPCS: 36415; 80048; 83735; 85025; 85610; 85730; 86803; 87389; 93005; 93010; 99284-25; J0131; J1100

== ENCOUNTER 2024-05-28 16:46 | Inpatient (IN) | payer OTHER ==
[2024-05-28 18:21] LABS: EPI CELLS 10 /uL (0-25.1); HYALINE CASTS 1 /uL (0-3.1); PH,URINE 6.5 (5.0-8.0); URINE APPEARANCE TURBID; URINE BACTERIA 6 /uL (0-1359); URINE BILIRUBIN 1+ (NEGATIVE); URINE COLOR RED; URINE GLUCOSE (UA) NEGATIVE (NEGATIVE); URINE KETONE NEGATIVE (NEGATIVE); URINE LEUK ESTERASE 1+ (NEGATIVE); URINE NITRITE NEGATIVE (NEGATIVE); URINE PROTEIN 3+ (NEGATIVE); URINE RBC 25020 /uL (0-23.9); URINE WBC 48 /uL (0-25.8)
[2024-05-28] MEDS ORDERED: ACETAMINOPHEN INJECTION 100 ML ONE (19:30)
[2024-05-28] MEDS: ACETAMINOPHEN 1000 MG/100 ML BAG IVPB ONE (19:35)
[2024-05-28 19:43] LABS: EOS % 1.2 % (0-4.5); HEMATOCRIT 38.3 % (32.4-45.2); HEMOGLOBIN 12.6 GM/dL (10.7-15.3); LYMPH % 23.4 % (8-40); MCH 29.1 pg (25.7-33.7); MEAN CELL VOLUME 88.3 fl (80-96); MEAN PLT VOLUME 10.2 fl (7.5-11.1); MONO % 9.1 % (3.8-10.2); NEUT % 65.3 % (42.8-82.8); PLATELET COUNT 54 10^3/uL (134-434); RBC 4.34 M/mm3 (3.60-5.2); WHITE BLOOD COUNT 15.1 K/mm3 (4.0-10.0)
[2024-05-28 19:59] LABS: POTASSIUM 3.7 mmol/L (3.5-5.1)
[2024-05-28 20:01] LABS: ALBUMIN 2.9 g/dl (3.4-5.0); CALCIUM 8.6 mg/dL (8.5-10.1)
[2024-05-28 20:02] LABS: BLOOD UREA NITROGEN 8.1 mg/dL (7-18)
[2024-05-28 20:05] LABS: CREATININE 0.7 mg/dL (0.55-1.3)
[2024-05-28 20:06] LABS: BILIRUBIN,TOTAL 0.4 mg/dL (0.2-1); TOT PROT 7.3 g/dl (6.4-8.2)
[2024-05-29] MEDS: ACETAMINOPHEN 1000 MG/100 ML BAG IVPB PRN (06:01)
[2024-05-29 10:22] LABS: HEMATOCRIT 38.3 % (32.4-45.2); HEMOGLOBIN 12.6 GM/dL (10.7-15.3); MCH 29.2 pg (25.7-33.7); MCHC 32.8 g/dl (32.0-36.0); MEAN PLT VOLUME 9.8 fl (7.5-11.1); RBC 4.31 M/mm3 (3.60-5.2); RDW 14.1 % (11.6-15.6); WHITE BLOOD COUNT 13.2 K/mm3 (4.0-10.0)
[2024-05-29 10:26] LABS: COCAINE, UR NEGATIVE (NEGATIVE); METHADONE, UR NEGATIVE (NEGATIVE); OPIATES, URI NEGATIVE (NEGATIVE); PHENCYCLIDINE,URINE POSITIVE (NEGATIVE); URINE AMPHETAMINES NEGATIVE (NEGATIVE); URINE BARBITURATES NEGATIVE (NEGATIVE); URINE BENZODIAZEPINES NEGATIVE (NEGATIVE)
[2024-05-29 10:52] LABS: POTASSIUM 3.5 mmol/L (3.5-5.1)
[2024-05-29 11:01] LABS: CALCIUM 8.8 mg/dL (8.5-10.1)
[2024-05-29 11:02] LABS: ALBUMIN 2.7 g/dl (3.4-5.0); BLOOD UREA NITROGEN 6.6 mg/dL (7-18)
[2024-05-29 11:05] LABS: CREATININE 0.7 mg/dL (0.55-1.3)
[2024-05-29 11:07] LABS: BILIRUBIN,TOTAL 0.5 mg/dL (0.2-1); PLATELET COUNT 14 10^3/uL (134-434)
[2024-05-29] MEDS: methylPREDNISolone NA SUCC 40 MG/1 ML VIAL IVPUSH SCH (15:34)
[2024-05-29] MEDS: methylPREDNISolone NA SUCC 40 MG/1 ML VIAL IVPUSH ONE (15:34)
[2024-05-29] MEDS: METHYLPREDNISOLONE NA SUCC 1,000 MG in SODIUM CHLORIDE 250 ML IVPB ONE (16:17)
[2024-05-29] MEDS ORDERED: ACETAMINOPHEN 1000 MG/100 ML BAG IVPB PRN (20:03)
[2024-05-29] MEDS: ARTIFICIAL TEARS OPHTHALMIC DROPS OU PRN (21:14)
[2024-05-29] MEDS: FAMOTIDINE 20 MG/50 ML IVPB 20 MG/50 ML MG IVPB ONE (21:15)
[2024-05-29] MEDS: CHLORHEXIDINE GLUCONATE 4% CLEANSER FOR DECOLONIZATION TP SCH (21:16)
[2024-05-29] MEDS: MUPIROCIN 2% TOPICAL OINTMENT FOR DECOLONIZATION NS SCH (21:16)
[2024-05-29 22:09] LABS: HEMATOCRIT 38.2 % (32.4-45.2); HEMOGLOBIN 12.6 GM/dL (10.7-15.3); MCH 29.1 pg (25.7-33.7); MEAN CELL VOLUME 88.3 fl (80-96); MEAN PLT VOLUME 9.4 fl (7.5-11.1); PLATELET COUNT 43 10^3/uL (134-434); RBC 4.32 M/mm3 (3.60-5.2); RDW 14.5 % (11.6-15.6); WHITE BLOOD COUNT 19.2 K/mm3 (4.0-10.0)
[2024-05-29 23:21] LABS: EPI CELLS >36 /uL (0-25.1); HYALINE CASTS 26 /uL (0-3.1); PH,URINE 7.5 (5.0-8.0); URINE APPEARANCE CLEAR; URINE BACTERIA 1 /uL (0-1359); URINE BILIRUBIN NEGATIVE (NEGATIVE); URINE COLOR YELLOW; URINE GLUCOSE (UA) 2+ (NEGATIVE); URINE KETONE NEGATIVE (NEGATIVE); URINE LEUK ESTERASE NEGATIVE (NEGATIVE); URINE NITRITE NEGATIVE (NEGATIVE); URINE PROTEIN 3+ (NEGATIVE)
[2024-05-29 23:25] LABS: POTASSIUM 4.5 mmol/L (3.5-5.1)
[2024-05-29 23:26] LABS: URINE RBC 46152.7 /uL (0-23.9); URINE WBC 142.8 /uL (0-25.8)
[2024-05-29 23:27] LABS: CALCIUM 8.6 mg/dL (8.5-10.1)
[2024-05-29 23:28] LABS: ALBUMIN 2.9 g/dl (3.4-5.0); BLOOD UREA NITROGEN 9.8 mg/dL (7-18)
[2024-05-29 23:31] LABS: CREATININE 0.8 mg/dL (0.55-1.3)
[2024-05-29 23:32] LABS: BILIRUBIN,TOTAL 0.5 mg/dL (0.2-1)
[2024-05-29 23:33] LABS: TOT PROT 7.9 g/dl (6.4-8.2)
[2024-05-30 07:24] LABS: HEMATOCRIT 38.2 % (32.4-45.2); HEMOGLOBIN 12.7 GM/dL (10.7-15.3); MCH 29.2 pg (25.7-33.7); MCHC 33.3 g/dl (32.0-36.0); MEAN CELL VOLUME 87.8 fl (80-96); MEAN PLT VOLUME 13.6 fl (7.5-11.1); PLATELET COUNT 38 10^3/uL (134-434); RBC 4.36 M/mm3 (3.60-5.2); RDW 13.7 % (11.6-15.6); WHITE BLOOD COUNT 15.4 K/mm3 (4.0-10.0)
[2024-05-30 07:32] LABS: POTASSIUM 3.8 mmol/L (3.5-5.1)
[2024-05-30 07:43] LABS: BLOOD UREA NITROGEN 11.3 mg/dL (7-18); CALCIUM 9.1 mg/dL (8.5-10.1)
[2024-05-30 07:47] LABS: CREATININE 0.8 mg/dL (0.55-1.3)
[2024-05-30] MEDS: methylPREDNISolone NA SUCC 1000 MG/8 ML VIAL IVPB SCH (15:46)
[2024-05-30] MEDS ORDERED: ARTIFICIAL TEARS OPHTHALMIC DROPS OU PRN (16:55)
[2024-05-30] MEDS: POLYETHYLENE GLYCOL (HEALTHYLAX) 3350 17 GM PACKET PO SCH (17:17)
[2024-05-30] MEDS ORDERED: CHLORHEXIDINE GLUCONATE 4% CLEANSER FOR DECOLONIZATION TP SCH (22:00)
[2024-05-30] MEDS: ACETAMINOPHEN 1000 MG/100 ML BAG IVPB PRN (23:22)
[2024-05-31] MEDS: ACETAMINOPHEN 500 MG TABLET (FP) PO PRN (11:26)
[2024-05-31 11:31] LABS: HEMATOCRIT 36.1 % (32.4-45.2); HEMOGLOBIN 12.1 GM/dL (10.7-15.3); MCH 29.1 pg (25.7-33.7); MCHC 33.5 g/dl (32.0-36.0); MEAN CELL VOLUME 86.8 fl (80-96); MEAN PLT VOLUME 10.3 fl (7.5-11.1); PLATELET COUNT 57 10^3/uL (134-434); RBC 4.16 M/mm3 (3.60-5.2); RDW 14.2 % (11.6-15.6); WHITE BLOOD COUNT 23.7 K/mm3 (4.0-10.0)
[2024-05-31 12:02] LABS: POTASSIUM 3.4 mmol/L (3.5-5.1)
[2024-05-31 12:08] LABS: CALCIUM 9.3 mg/dL (8.5-10.1)
[2024-05-31 12:09] LABS: MAGNESIUM 2.2 mg/dL (1.8-2.4)
[2024-05-31 12:11] LABS: BILIRUBIN,TOTAL 0.3 mg/dL (0.2-1); TOT PROT 7.4 g/dl (6.4-8.2)
[2024-05-31] MEDS: POLYETHYLENE GLYCOL (HEALTHYLAX) 3350 17 GM PACKET PO SCH (12:47)
[2024-05-31] MEDS: BISACODYL 5 MG TABLET.DR (FP) PO ONE (13:56)
[2024-05-31] MEDS: levoFLOXacin 750 MG TABLET PO SCH (14:26)
[2024-05-31] MEDS: methylPREDNISolone NA SUCC 125 MG/2 ML VIAL IM ONE (16:20)
[2024-05-31] MEDS: methylPREDNISolone NA SUCC 1000 MG/8 ML VIAL IVPB SCH (16:54)
[2024-05-31] MEDS: LIDOCAINE 5% TOPICAL PATCH TP ONE (17:43)
[2024-05-31] MEDS: SENNOSIDES 8.6MG TABLET (FP) PO PRN (22:37)
[2024-06-01] MEDS: LIDOCAINE PATCH REMOVAL MC SCH (07:06)
[2024-06-01 10:28] LABS: HEMOGLOBIN 12.5 GM/dL (10.7-15.3); MCHC 32.9 g/dl (32.0-36.0); MEAN CELL VOLUME 88.1 fl (80-96); MEAN PLT VOLUME 10.2 fl (7.5-11.1); PLATELET COUNT 43 10^3/uL (134-434); RBC 4.32 M/mm3 (3.60-5.2); RDW 13.9 % (11.6-15.6); WHITE BLOOD COUNT 18.1 K/mm3 (4.0-10.0)
[2024-06-01 10:56] LABS: POTASSIUM 3.8 mmol/L (3.5-5.1)
[2024-06-01 11:08] LABS: BLOOD UREA NITROGEN 16.1 mg/dL (7-18); CALCIUM 8.9 mg/dL (8.5-10.1); MAGNESIUM 2.2 mg/dL (1.8-2.4)
[2024-06-01 11:11] LABS: CREATININE 0.9 mg/dL (0.55-1.3)
[2024-06-01 11:12] LABS: PHOSPHOROUS 2.9 mg/dL (2.5-4.9)
[2024-06-01] MEDS: METHYLPREDNISOLONE NA SUCC 1,000 MG in DEXTROSE 5%-WATER - 250 ML IVPB SCH (13:21)
[2024-06-01] MEDS: LACTOBACILLUS ACIDOPHILUS 1 TABLET PO SCH (13:21)
[2024-06-01] MEDS: MUPIROCIN 2% TOPICAL OINTMENT FOR DECOLONIZATION NS SCH (13:22)
[2024-06-02 12:33] LABS: HEMATOCRIT 37.4 % (32.4-45.2); HEMOGLOBIN 12.4 GM/dL (10.7-15.3); MCHC 33.2 g/dl (32.0-36.0); MEAN CELL VOLUME 87.3 fl (80-96); MEAN PLT VOLUME 10.3 fl (7.5-11.1); PLATELET COUNT 56 10^3/uL (134-434); RBC 4.28 M/mm3 (3.60-5.2); RDW 14.5 % (11.6-15.6)
[2024-06-02 13:03] LABS: POTASSIUM 3.8 mmol/L (3.5-5.1)
[2024-06-02 13:05] LABS: ALBUMIN 2.9 g/dl (3.4-5.0); BLOOD UREA NITROGEN 18.3 mg/dL (7-18); CALCIUM 9.1 mg/dL (8.5-10.1); MAGNESIUM 2.6 mg/dL (1.8-2.4)
[2024-06-02 13:10] LABS: BILIRUBIN,TOTAL 0.3 mg/dL (0.2-1); TOT PROT 7.2 g/dl (6.4-8.2)
[2024-06-02] MEDS: traMADol HCL 50 MG TABLET PO ONE (16:16)
[2024-06-02] MEDS: ONDANSETRON 4 MG/2 ML VIAL IVPUSH ONE (20:54)
[2024-06-02] MEDS: POLYETHYLENE GLYCOL (HEALTHYLAX) 3350 17 GM PACKET PO SCH (20:54)
[2024-06-03 10:25] LABS: HEMATOCRIT 34.9 % (32.4-45.2); HEMOGLOBIN 11.8 GM/dL (10.7-15.3); MCH 29.4 pg (25.7-33.7); MCHC 33.7 g/dl (32.0-36.0); MEAN CELL VOLUME 87.4 fl (80-96); MEAN PLT VOLUME 9.9 fl (7.5-11.1); RDW 14.1 % (11.6-15.6); WHITE BLOOD COUNT 16.3 K/mm3 (4.0-10.0)
[2024-06-03 10:42] LABS: PLATELET COUNT 29 10^3/uL (134-434)
[2024-06-03 11:27] LABS: ANISOCYTOSIS 0; HELMET CELLS 0; HOWELL-JOLLY BODIES 0; MACROCYTOSIS 0; OVALOCYTE 0; ROULEAU 0; SICKELED CELLS 0; TARGET CELLS 0; TEAR DROP CELLS 0; TOXIC GRANULATION 0
[2024-06-03 14:42] VITALS: BMI 30.4
[2024-06-04 13:56] LABS: BASO % 0.2 % (0-2.0); EOS % 1.5 % (0-4.5); HEMATOCRIT 35.8 % (32.4-45.2); HEMOGLOBIN 11.9 GM/dL (10.7-15.3); LYMPH % 29.7 % (8-40); MCH 29.2 pg (25.7-33.7); MCHC 33.3 g/dl (32.0-36.0); MEAN CELL VOLUME 87.6 fl (80-96); MEAN PLT VOLUME 9.6 fl (7.5-11.1); NEUT % 62.6 % (42.8-82.8); RBC 4.09 M/mm3 (3.60-5.2); WHITE BLOOD COUNT 11.8 K/mm3 (4.0-10.0)
[2024-06-04 14:03] LABS: PLATELET COUNT 33 10^3/uL (134-434)
[2024-06-05] MEDS: IMMUN GLOB G(IGG)/PRO/IGA 0-50 600 ML IVPB ONE ×2 (01:45→01:53)
[2024-06-05] MEDS: GLYCERIN 1 RECTAL SUPPOSITORY, ADULT RC ONE (13:11)
[2024-06-05] MEDS: morphine CARPU-JECT 2 MG/1 ML DISP.SYRIN IM ONE (18:07)
[2024-06-06] MEDS: MAG HYDROX/AL HYDROX/SIMETH 30 ML UNIT-DOSE CUP PO PRN (14:16)
[2024-06-06 17:48] LABS: BASO % 0.4 % (0-2.0); EOS % 1.2 % (0-4.5); HEMATOCRIT 38.6 % (32.4-45.2); HEMOGLOBIN 12.4 GM/dL (10.7-15.3); LYMPH % 23.8 % (8-40); MCH 28.7 pg (25.7-33.7); MCHC 32.1 g/dl (32.0-36.0); MEAN CELL VOLUME 89.6 fl (80-96); MEAN PLT VOLUME 11.4 fl (7.5-11.1); MONO % 7.5 % (3.8-10.2); NEUT % 67.1 % (42.8-82.8); PLATELET COUNT 41 10^3/uL (134-434); RBC 4.31 M/mm3 (3.60-5.2); RDW 14.9 % (11.6-15.6); WHITE BLOOD COUNT 14.3 K/mm3 (4.0-10.0)
[2024-06-07 11:10] LABS: HEMATOCRIT 33.6 % (32.4-45.2); HEMOGLOBIN 11.1 GM/dL (10.7-15.3); MCH 28.9 pg (25.7-33.7); MCHC 33.2 g/dl (32.0-36.0); MEAN CELL VOLUME 87.1 fl (80-96); MEAN PLT VOLUME 11.4 fl (7.5-11.1); PLATELET COUNT 50 10^3/uL (134-434); RBC 3.85 M/mm3 (3.60-5.2); RDW 14.5 % (11.6-15.6); WHITE BLOOD COUNT 13.1 K/mm3 (4.0-10.0)
[2024-06-07 12:43] LABS: ANISOCYTOSIS 1+; MACROCYTOSIS 1+
[2024-06-07] MEDS: levoFLOXacin 750 MG TABLET PO SCH (14:49)
[2024-06-07 23:44] LABS: BASO % 0.8 % (0-2.0); EOS % 0.5 % (0-4.5); HEMOGLOBIN 10.8 GM/dL (10.7-15.3); LYMPH % 17.6 % (8-40); MCH 28.7 pg (25.7-33.7); MCHC 32.6 g/dl (32.0-36.0); MEAN CELL VOLUME 88.1 fl (80-96); MEAN PLT VOLUME 10.4 fl (7.5-11.1); MONO % 7.9 % (3.8-10.2); NEUT % 73.2 % (42.8-82.8); PLATELET COUNT 55 10^3/uL (134-434); RBC 3.75 M/mm3 (3.60-5.2); RDW 14.2 % (11.6-15.6); WHITE BLOOD COUNT 14.6 K/mm3 (4.0-10.0)
[2024-06-08] MEDS: PIPERACILLIN/TAZOB 3.375 GM 50 ML IVPB SCH (01:52)
[2024-06-08 02:02] LABS: EPI CELLS 23 /uL (0-25.1); HYALINE CASTS 1 /uL (0-3.1); PH,URINE 7.5 (5.0-8.0); URINE APPEARANCE CLOUDY; URINE BACTERIA 11 /uL (0-1359); URINE BILIRUBIN NEGATIVE (NEGATIVE); URINE COLOR YELLOW; URINE GLUCOSE (UA) NEGATIVE (NEGATIVE); URINE KETONE 1+ (NEGATIVE); URINE LEUK ESTERASE TRACE (NEGATIVE); URINE NITRITE NEGATIVE (NEGATIVE); URINE PROTEIN 3+ (NEGATIVE); URINE RBC 5859 /uL (0-23.9); URINE UROBILINOGEN 0.2 mg/dL (0.2-1.0); URINE WBC 221 /uL (0-25.8)
[2024-06-08 09:54] LABS: BASO % 0.6 % (0-2.0); EOS % 0.5 % (0-4.5); HEMATOCRIT 33.2 % (32.4-45.2); HEMOGLOBIN 11.1 GM/dL (10.7-15.3); LYMPH % 17.1 % (8-40); MCHC 33.4 g/dl (32.0-36.0); MEAN PLT VOLUME 10.6 fl (7.5-11.1); MONO % 7.5 % (3.8-10.2); NEUT % 74.3 % (42.8-82.8); PLATELET COUNT 72 10^3/uL (134-434); RBC 3.81 M/mm3 (3.60-5.2); RDW 14.4 % (11.6-15.6); WHITE BLOOD COUNT 14.5 K/mm3 (4.0-10.0)
[2024-06-08 10:13] LABS: CALCIUM 8.7 mg/dL (8.5-10.1)
[2024-06-08 10:14] LABS: ALBUMIN 2.7 g/dl (3.4-5.0); BLOOD UREA NITROGEN 8.3 mg/dL (7-18)
[2024-06-08 10:15] LABS: ALBUMIN 2.7 g/dl (3.4-5.0); CALCIUM 8.8 mg/dL (8.5-10.1)
[2024-06-08 10:16] LABS: BLOOD UREA NITROGEN 7.7 mg/dL (7-18)
[2024-06-08 10:17] LABS: CREATININE 0.9 mg/dL (0.55-1.3)
[2024-06-08 10:18] LABS: BILIRUBIN,TOTAL 0.3 mg/dL (0.2-1); TOT PROT 7.3 g/dl (6.4-8.2)
[2024-06-08 10:19] LABS: CREATININE 0.9 mg/dL (0.55-1.3)
[2024-06-08 10:20] LABS: BILIRUBIN,TOTAL 0.4 mg/dL (0.2-1); TOT PROT 7.4 g/dl (6.4-8.2)
[2024-06-09 09:40] LABS: BASO % 0.7 % (0-2.0); EOS % 1.2 % (0-4.5); HEMATOCRIT 34.9 % (32.4-45.2); HEMOGLOBIN 11.2 GM/dL (10.7-15.3); LYMPH % 18.3 % (8-40); MCH 28.5 pg (25.7-33.7); MCHC 32.2 g/dl (32.0-36.0); MEAN CELL VOLUME 88.5 fl (80-96); MEAN PLT VOLUME 10.1 fl (7.5-11.1); MONO % 6.6 % (3.8-10.2); NEUT % 73.2 % (42.8-82.8); PLATELET COUNT 86 10^3/uL (134-434); RBC 3.94 M/mm3 (3.60-5.2); RDW 14.8 % (11.6-15.6); WHITE BLOOD COUNT 12.7 K/mm3 (4.0-10.0)
[2024-06-09 09:58] LABS: POTASSIUM 4.3 mmol/L (3.5-5.1)
[2024-06-09 10:01] LABS: ALBUMIN 2.6 g/dl (3.4-5.0); BLOOD UREA NITROGEN 8.8 mg/dL (7-18); CALCIUM 8.8 mg/dL (8.5-10.1)
[2024-06-09 10:05] LABS: BILIRUBIN,TOTAL 0.4 mg/dL (0.2-1)
[2024-06-09 10:07] LABS: TOT PROT 7.4 g/dl (6.4-8.2)
[2024-06-09] MEDS: PIPERACILLIN/TAZOB 3.375 GM 3.375 GM in DEXTROSE 5%-WATER - 50 ML IVPB SCH (11:06)
[2024-06-10 10:04] LABS: BASO % 0.8 % (0-2.0); EOS % 1.2 % (0-4.5); HEMATOCRIT 34.1 % (32.4-45.2); LYMPH % 18.8 % (8-40); MCH 28.4 pg (25.7-33.7); MCHC 32.2 g/dl (32.0-36.0); MEAN CELL VOLUME 88.1 fl (80-96); MEAN PLT VOLUME 9.8 fl (7.5-11.1); MONO % 5.6 % (3.8-10.2); NEUT % 73.6 % (42.8-82.8); PLATELET COUNT 80 10^3/uL (134-434); RBC 3.87 M/mm3 (3.60-5.2); RDW 14.5 % (11.6-15.6); WHITE BLOOD COUNT 13.1 K/mm3 (4.0-10.0)
[2024-06-10] MEDS: SODIUM CHLORIDE 1,000 ML IV SCH (11:40)
[2024-06-10] MEDS: MEROPENEM-0.9% SODIUM CHLORIDE 1 GM/50 ML BAG IVPB SCH (11:42)
[2024-06-10] MEDS ORDERED: MEROPENEM-0.9% SODIUM CHLORIDE 1 GM/50 ML BAG IVPB SCH ×2 (12:00→18:00)
[2024-06-10 16:22] LABS: ALBUMIN 2.7 g/dl (3.4-5.0); BILIRUBIN,TOTAL 0.4 mg/dL (0.2-1); BLOOD UREA NITROGEN 11.3 mg/dL (7-18); CALCIUM 8.9 mg/dL (8.5-10.1); TOT PROT 7.7 g/dl (6.4-8.2)
[2024-06-11] MEDS ORDERED: BENZOCAINE/MENTHOL 1 EACH LOZENGE MM PRN (06:32)
[2024-06-11 09:10] LABS: BASO % 1.3 % (0-2.0); HEMATOCRIT 32.4 % (32.4-45.2); HEMOGLOBIN 10.5 GM/dL (10.7-15.3); LYMPH % 21.3 % (8-40); MCH 28.7 pg (25.7-33.7); MCHC 32.4 g/dl (32.0-36.0); MEAN CELL VOLUME 88.6 fl (80-96); MEAN PLT VOLUME 9.9 fl (7.5-11.1); MONO % 5.1 % (3.8-10.2); NEUT % 71.3 % (42.8-82.8); PLATELET COUNT 66 10^3/uL (134-434); RBC 3.66 M/mm3 (3.60-5.2); RDW 14.8 % (11.6-15.6)
[2024-06-11 09:36] LABS: POTASSIUM 4.5 mmol/L (3.5-5.1)
[2024-06-11 09:39] LABS: CALCIUM 8.8 mg/dL (8.5-10.1)
[2024-06-11 09:40] LABS: ALBUMIN 2.5 g/dl (3.4-5.0); BLOOD UREA NITROGEN 7.4 mg/dL (7-18)
[2024-06-11 09:43] LABS: CREATININE 1.1 mg/dL (0.55-1.3)
[2024-06-11 09:45] LABS: BILIRUBIN,TOTAL 0.3 mg/dL (0.2-1); TOT PROT 7.2 g/dl (6.4-8.2)
[2024-06-11] MEDS: guaiFENesin/D-METHORPHAN HB 10 ML UNIT-DOSE CUPS PO PRN (10:19)
[2024-06-12 08:46] VITALS: BP 116/72; PULSE 85; RESP 19; TEMP 98.4
== END 2024-06-12 10:00 | disposition home or self-care (01) | DRG 661 ==
LOC: JER 16:46 → JERBED 05-29 01:13 → J5S 05-29 02:59 → OBSVTOIN 05-29 15:38 → JICU 05-29 16:58 → J5S 05-30 16:40
PROVIDERS: ADMIT Internal Medicine; ATTEND Internal Medicine
PROC: 30233R1 Transfusion of Nonautologous Platelets into Peripheral Vein, Percutaneous Approach (ICD-10-PCS; 2024-05-29)
PROC: 05HY33Z Insertion of Infusion Device into Upper Vein, Percutaneous Approach (ICD-10-PCS; principal; 2024-06-08)
DX: D69.3 Immune thrombocytopenic purpura (principal); N12 Tubulo-interstitial nephritis, not specified as acute or chronic; F19.90 Other psychoactive substance use, unspecified, uncomplicated; R11.2 Nausea with vomiting, unspecified; R19.7 Diarrhea, unspecified; R31.9 Hematuria, unspecified; Z59.00 Homelessness unspecified; Z90.81 Acquired absence of spleen
CPT/HCPCS: 36415; 36430; 70450-TC; 71045-TC-FY; 74019-TC-FY; 74176-TC; 74177-TC; 76700-TC; 76775-TC; 78226-TC; 80048; 80053; 80307; 81003; 83010; 83036; 83520; 83605; 83615; 83690; 83735; 84100; 84484; 84703; 85025; 85027; 85045; 85384; 86850; 86880; 86900; 86901; 87040; 87086; 87481; 87491; 87591; 87635; 87661; 93005; 93010; 97116-GP; 97161-GP; 99285-25; A9537; G0378; J0131; J1459; P9037; P9038

== ENCOUNTER 2024-07-21 19:29 | Emergency (ER) | payer OTHER ==
[2024-07-21 19:36] VITALS: BP 130/84; PULSE 75; RESP 18; TEMP 98.7; BMI 30.2
[2024-07-21] MEDS: SODIUM CHLORIDE 0.9% 500 ML INFUS.BAG IV ONE (20:29)
[2024-07-21 20:31] LABS: BASO % 0.3 % (0-2.0); EOS % 3.3 % (0-4.5); HEMATOCRIT 41.7 % (32.4-45.2); HEMOGLOBIN 13.5 GM/dL (10.7-15.3); LYMPH % 14.1 % (8-40); MCH 28.4 pg (25.7-33.7); MCHC 32.4 g/dl (32.0-36.0); MEAN CELL VOLUME 87.7 fl (80-96); MEAN PLT VOLUME 8.5 fl (7.5-11.1); MONO % 4.7 % (3.8-10.2); NEUT % 77.6 % (42.8-82.8); PLATELET COUNT 62 10^3/uL (134-434); RBC 4.75 M/mm3 (3.60-5.2); RDW 15.3 % (11.6-15.6)
[2024-07-21 20:51] LABS: PH,URINE 5.5 (5.0-8.0); URINE APPEARANCE CLEAR; URINE BILIRUBIN NEGATIVE (NEGATIVE); URINE COLOR YELLOW; URINE GLUCOSE (UA) NEGATIVE (NEGATIVE); URINE KETONE TRACE (NEGATIVE); URINE LEUK ESTERASE NEGATIVE (NEGATIVE); URINE NITRITE NEGATIVE (NEGATIVE); URINE PROTEIN TRACE (NEGATIVE); URINE UROBILINOGEN 0.2 mg/dL (0.2-1.0)
[2024-07-21 20:57] LABS: BLOOD UREA NITROGEN 11.3 mg/dL (7-18); CALCIUM 9.2 mg/dL (8.5-10.1)
[2024-07-21 20:58] LABS: ALBUMIN 3.6 g/dl (3.4-5.0)
[2024-07-21 21:01] LABS: CREATININE 0.9 mg/dL (0.55-1.3)
[2024-07-21 21:02] LABS: BILIRUBIN,TOTAL 0.4 mg/dL (0.2-1); TOT PROT 7.8 g/dl (6.4-8.2)
[2024-07-21] MEDS ORDERED: ONDANSETRON 4 MG/2 ML VIAL ONE (21:16)
[2024-07-21] MEDS: ONDANSETRON 4 MG/2 ML VIAL IVPUSH ONE (21:17)
== END 2024-07-21 22:28 | disposition home or self-care (01) ==
LOC: JER 19:29
PROC: 3E033GC Introduction of Other Therapeutic Substance into Peripheral Vein, Percutaneous Approach (ICD-10-PCS; principal; 2024-07-21)
DX: R19.7 Diarrhea, unspecified (principal); R10.33 Periumbilical pain; R14.0 Abdominal distension (gaseous); Z20.822 Contact with and (suspected) exposure to COVID-19
CPT/HCPCS: 0241U-QW; 36415; 80053; 81003; 83690; 84484; 85025; 87086; 93005; 93010; 99284-25

== ENCOUNTER 2024-11-22 21:59 | Emergency (ER) | payer OTHER ==
[2024-11-22 22:08] VITALS: BP 131/81; PULSE 85; RESP 18; TEMP 98.6; BMI 30.9
== END 2024-11-22 22:50 | disposition home or self-care (01) ==
LOC: JER 21:59
DX: F16.10 Hallucinogen abuse, uncomplicated (principal); Z00.00 Encounter for general adult medical examination without abnormal findings
CPT/HCPCS: 99283-25